=== PATIENT | female | born 1945 | race Caucasian/White ===

== ENCOUNTER 2017-06-18 07:00 | Observation (INO) | payer OTHER, MEDICARE ==
[2017-06-18] MEDS ORDERED: ASPIRIN 81 MG CHEWABLE TABLETS PO ONE (07:20)
[2017-06-18 07:21] VITALS: BMI 27.3
[2017-06-18] MEDS ORDERED: ASPIRIN 81 MG CHEWABLE TABLETS ONE (07:28)
[2017-06-18 07:31] LABS: BASOPHIL 2.5 % (0-2.0); EOSINOPHIL 8.6 % (0-4.5); MCHC 31.4 g/dl (32.0-36.0); MEAN CELL VOLUME 79.5 fl (80-96); MEAN PLT VOLUME 8.6 fl (7.5-11.1); NEUTROPHILS 54.2 % (42.8-82.8); PLATELET COUNT 261 K/MM3 (134-434); RDW 19.2 % (11.6-15.6); WHITE BLOOD COUNT 5.8 K/mm3 (4.0-10.0)
--- NOTE | 2017-06-18 07:50 | PDOC ---
Attending Attestation - Resident Resident Name: JoeyohanaJan - ED Attending Attestation I have performed the following: I have examined & evaluated the patient, The case was reviewed & discussed with the resident, I agree w/resident's findings & plan, Exceptions are as noted - HPI HPI: 06/18/17 07:44 71yo F hx COPD, asthma, HTN, HL p/w substernal CP radiating to R side and back a /w cough and headache since yesterday. Intermittent yesterday but constant since last night. No recent travel or LE edema. - Physicial Exam PE: 06/18/17 07:50 GENERAL: Awake, alert, and fully oriented, in no acute distress HEAD: No signs of trauma EYES: PERRLA, EOMI, sclera anicteric, conjunctiva clear ENT: Auricles normal inspection, hearing grossly normal, nares patent, oropharynx clear without exudates. Moist mucosa NECK: Normal ROM, supple, no lymphadenopathy, JVD, or masses LUNGS: Breath sounds equal, clear to auscultation bilaterally. No wheezes, and no crackles HEART: Regular rate and rhythm, normal S1 and S2, no murmurs, rubs or gallops ABDOMEN: Soft, nontender, normoactive bowel sounds. No guarding, no rebound. No masses EXTREMITIES: Normal range of motion, no edema. No clubbing or cyanosis. No cords, erythema, or tenderness NEUROLOGICAL: Normal speech, cranial nerves intact, negative pronator drift, 5/ 5 strength in all 4 extremities, normal sensation to light touch in all 4 extremities, normal cerebellar exam, normal gait, normal reflexes and tone SKIN: Warm, Dry, normal turgor, no rashes or lesions noted. - Medical Decision Making 06/18/17 07:56 71-year-old female with multiple medical problems presents with chest pain since last night. Vitals are unremarkable. Exam is unremarkable. Differential includes but is not limited to ACS versus PE versus pneumonia versus asthma exacerbation. -labs -cxr -cta -admit 06/18/17 10:36 Labs unremarkable including negative troponin. CTA negative for pulmonary embolism. Given high-risk chest pain patient has been admitted to Dr. Cooper for further management and R/o ACS. Case discussed in detail with admitting physician including history, physical exam and ancillary studies. Admitting physician has assumed care for the patient, will follow all pending diagnostics and will complete the evaluation and treatment. Heart Score/ECG Review - History History: Highly suspicious - Electrocardiogram EKG: Normal - Age Age: >/= 65 - Risk Factors Risk Factors Heart Score: Yes Hx Hypercholesterolemia, Yes Hx Hypertension, Yes Smoking History Based on the list above the patient has:: >/=3 risk factors or Hx atherosclerotic disease - Troponin Troponin: </= normal limit - Score Heart Score - Total: 6 #1 06/18/17 07:57 Twelve-lead EKG was performed and reviewed by me. Normal sinus rhythm, rate 68. Normal axis and intervals. No ST elevations.
--- NOTE | 2017-06-18 07:52 | PDOC ---
History of Present Illness - General Chief Complaint: Chest Pain Stated Complaint: PAIN Time Seen by Provider: 06/18/17 07:10 History Source: Patient Exam Limitations: No Limitations - History of Present Illness Initial Comments: 06/18/17 07:39 Patient is a 71F with history of COPD/Asthma, DM, HTN and HLD here today complaining of substernal chest pain radiating to the right side of the chest and back with associated cough, shortness of breath and headache. She states that the pain started yesterday, but was intermittent. The pain and associated symptoms were constant for about 7 hours before presentation, but she's the pain has lessened upon arrival to the hospital. She describes the pain as being "punched in the the chest." Pain gets worse with inspiration. She denies ever having a blood clot, leg swelling, hemoptysis, and recent travel. She states that she had a procedure done in a doctors office where they cut into her leg about a month ago for a varicose vein, but is unsure of exactly what was done. Patient denies nausea, vomiting, fevers, chills and diaphoresis. ALL: PCN, Demerol, Codeine PCP: Marcus Cooper Past History - Past Medical History Allergies/Adverse Reactions: Allergies Allergy/AdvReac Type Severity Reaction Status Date / Time codeine [Codeine] Allergy Severe Difficulty Verified 06/18/17 07:21 Breathing meperidine HCl [From Demerol] Allergy Severe Difficulty Verified 06/18/17 07:21 Breathing Penicillins Allergy Severe Difficulty Verified 06/18/17 07:21 Breathing apple juice Allergy Mild Hives/Itchi Uncoded 06/18/17 07:21 ng Home Medications: Ambulatory Orders Albuterol Sulfate Inhaler - [Ventolin HFA Inhaler -] 1 - 2 inh PO QID PRN Canagliflozin [Invokana] 100 mg PO DAILY 01/21/15 Furosemide [Lasix -] 20 mg PO TID 01/21/15 Levothyroxine [Synthroid -] 25 mcg PO DAILY 01/21/15 Insulin (Levemir) [Levemir Vial] 24 units SCJ DAILY 05/10/16 Omeprazole 20 mg PO DAILY 05/10/16 Fenofibrate [Lofibra] 160 mg PO DAILY 05/11/16 Lipase/Protease/Amylase [Creon Dr 24,000 Units Capsule] 1 cap PO DAILY 05/11/16 Montelukast Sodium 10 mg PO DAILY 05/11/16 Naproxen [Naprosyn -] 500 mg PO BID 05/11/16 Nitroglycerin [Nitrostat] 0.4 mg SL ASDIR PRN 05/11/16 Sitagliptin Phos/Metformin HCl [Janumet 50-1,000 mg Tablet] 1 cap PO DAILY 05/11 Anemia: No Asthma: Yes Cancer: No Cardiac Disorders: No CVA: No COPD: Yes CHF: No Dementia: No Diabetes: Yes (IDDM) GI Disorders: No Disorders: No HTN: Yes Hypercholesterolemia: Yes Liver Disease: No Seizures: No Thyroid Disease: No - Surgical History Abdominal Surgery: No Appendectomy: No Cardiac Surgery: No Cholecystectomy: No Lung Surgery: No Neurologic Surgery: No Orthopedic Surgery: No - Immunization History Immunization Up to Date: Yes - Suicide/Smoking/Psychosocial Hx Smoking Status: No (quit 2010) Smoking History: Never smoked Have you smoked in the past 12 months: No Number of Cigarettes Smoked Daily: 0 If you are a former smoker, when did you quit?: 2009 Information on smoking cessation initiated: No Hx Alcohol Use: No Drug/Substance Use Hx: No Substance Use Type: None Hx Substance Use Treatment: No Review of Systems - Review of Systems Comments:: 06/18/17 07:53 GENERAL/CONSTITUTIONAL: No fever or chills. No weakness. HEAD, EYES, EARS, NOSE AND THROAT: No change in vision. No sore throat. CARDIOVASCULAR: Positive for chest pain and shortness of breath. RESPIRATORY: Positive for cough. Negative for wheezing, or hemoptysis. GASTROINTESTINAL: No nausea, vomiting, diarrhea or constipation. GENITOURINARY: No dysuria, frequency, or change in urination. MUSCULOSKELETAL: No joint or muscle swelling or pain. No neck or back pain. SKIN: No rash NEUROLOGIC: Positive headache. Negative for vertigo, loss of consciousness, or change in strength/sensation. ENDOCRINE: No increased thirst. No abnormal weight change HEMATOLOGIC/LYMPHATIC: No anemia, easy bleeding, or history of blood clots. ALLERGIC/IMMUNOLOGIC: No hives or skin allergy. *Physical Exam - Vital Signs Last Vital Signs Temp Pulse Resp BP Pulse Ox 98.2 F 66 20 135/93 98 06/18/17 07:22 06/18/17 07:19 06/18/17 07:22 06/18/17 07:19 06/18/17 07:22 - Physical Exam Comments: 06/18/17 07:55 GENERAL: Awake, alert, and fully oriented, in no acute distress HEAD: No signs of trauma, normocephalic, atraumatic EYES: PERRLA, EOMI, sclera anicteric, conjunctiva clear ENT: Auricles normal inspection, hearing grossly normal, nares patent, oropharynx clear without exudates. Moist mucosa NECK: Normal ROM, supple, no lymphadenopathy, JVD, or masses LUNGS: No distress, speaks full sentences, clear to auscultation bilaterally HEART: Regular rate and rhythm, normal S1 and S2, no murmurs, rubs or gallops, peripheral pulses normal and equal bilaterally. ABDOMEN: Soft, nontender, normoactive bowel sounds. No guarding, no rebound. No masses EXTREMITIES: Normal inspection, Normal range of motion, no edema. No clubbing or cyanosis. NEUROLOGICAL: Cranial nerves II through XII grossly intact. Normal speech, no focal sensorimotor deficits SKIN: Warm, Dry, normal turgor, no rashes or lesions noted. Heart Score/ECG Review - History History: Moderately suspicious - Electrocardiogram EKG: Normal - Age Age: >/= 65 - Risk Factors Risk Factors Heart Score: Yes Hx Hypercholesterolemia, Yes Hx Hypertension, Yes Hx Diabetes, Yes Smoking History Based on the list above the patient has:: >/=3 risk factors or Hx atherosclerotic disease - Troponin Troponin: </= normal limit - Score Heart Score - Total: 5 ED Treatment Course - LABORATORY CBC & Chemistry Diagram: 06/18/17 07:18 06/18/17 07:18 - ADDITIONAL ORDERS Additional order review: 06/18/17 07:18 RBC 5.34 H MCV 79.5 L MCHC 31.4 L RDW 19.2 H D MPV 8.6 Neutrophils % 54.2 Lymphocytes % 25.7 D Monocytes % 9.0 Eosinophils % 8.6 H Basophils % 2.5 H D - RADIOLOGY Radiology Studies Ordered: Category Date Time Status CHEST CTA [CT] Stat CT Scan 06/18/17 07:21 Ordered CHEST X-RAY PORTABLE* [RAD] Stat Radiology 06/18/17 07:21 Ordered - Medications Given in the ED: ED Medications Discontinued Medications Generic Name Dose Route Start Last Admin Trade Name Wali PRN Reason Stop Dose Admin Aspirin 162 mg 06/18/17 07:20 06/18/17 07:32 Asa - PO 06/18/17 07:21 162 mg ONCE ONE Administration Medical Decision Making - Medical Decision Making 06/18/17 07:56 71F with history of COPD/Asthma, COPD, smoking history, and NIDDM here today complaining of chest pain. Vital signs stable and normal. Possible recent surgical procedure. Chest pain is pleuritic, but patient is currently in little pain when compared to before. Will evaluate with heart workup and chest cta to eval for PE. HEART score of 5 at baseline. Will likely obs. EKG shows normal sinus rhythm, normal rate, no st elevations, no significant t wave inversions, normal axis, normal intervals. Reassuring EKG. 06/18/17 08:47 CXR shows no acute cardiopulmonary process. No evidence of widened mediastinum or heart failure. Possible cardiomegaly. 06/18/17 08:48 Laboratory Tests 06/18/17 06/18/17 07:18 07:18 WBC 5.8 Hgb 13.3 Hct 42.4 Plt Count 261 D BUN 19 H Creatinine 1.0 Troponin I < 0.02 CBC normal. Kidney function normal. Troponin neg. 06/18/17 10:03 CTA shows no PE, no evidence of dissection, borderline enlarged lymph node in paratracheal area, recommends comparison to prior CT or follow up CT in 6 months. Patient informed of results. 06/18/17 17:[address] Cooper. *DC/Admit/Observation/Transfer Diagnosis at time of Disposition: Chest pain Qualifiers: Chest pain type: precordial pain Qualified Code(s): R07.2 - Precordial pain - Discharge Dispostion Condition at time of disposition: Stable Admit: Yes - Referrals - Patient Instructions - Post Discharge Activity
[2017-06-18 07:53] LABS: ALBUMIN 3.6 g/dl (3.4-5.0); ANION GAP 8 (8-16); BILIRUBIN,TOTAL 0.2 mg/dL (0.2-1.0); CALCIUM 8.2 mg/dL (8.5-10.1); CO2 22 mmol/L (21-32); GLUCOSE,RANDOM 128 mg/dL (74-106); INR 0.95 (0.82-1.09); MAGNESIUM 2.2 mg/dL (1.8-2.4); PROTHROMBIN TIME (PATIENT) 10.7 SEC (9.98-11.88); SGOT/AST 17 U/L (15-37); SGPT/ALT 26 U/L (12-78); TOT PROT 7.3 g/dl (6.4-8.2)
[2017-06-18 07:55] LABS: ALK PHOS 72 U/L (45-117); CPK 95 IU/L (26-192); TROPONIN I < 0.02 ng/ml (0.00-0.05)
--- NOTE | 2017-06-18 13:00 | CON.CARD ---
Consult Consult Specialty:: Cardiology Referred by:: Dr Marcus Cooper Reason for Consultation:: chest pain - History of Present Illness Chief Complaint: chest pain History of Present Illness: She is a 71 year old woman with a history of HTN, chol, COPD, exsmoker, pericardial effusion 2014 by echo, normal stress test about 2 years ago on [facility], who presented with epigastric and retrosternal chest pain, radiating to the right chest, shoulder and back, nonexertional, with sob. No orthopnea, pnd or edema. No palpitations, dizziness or syncope. Baseline exercise tolerance is good. CTA 06/18/17 no PE No effusion. +coronary artery calcifications. - History Source History Provided By: Patient, Medical Record Limitations to Obtaining History: No Limitations - Past Medical History Cardio/Vascular: Yes: HTN, Hyperlipdemia Pulmonary: Yes: Asthma, COPD - Past Surgical History Past Surgical History: Yes: Cholecystectomy (18 years ago) - Alcohol/Substance Use Hx Alcohol Use: No - Smoking History Smoking history: Never smoked Have you smoked in the past 12 months: No Aproximately how many cigarettes per day: 0 If you are a former smoker, when did you quit?: 2009 Home Medications - Allergies Allergies/Adverse Reactions: Allergies Allergy/AdvReac Type Severity Reaction Status Date / Time codeine [Codeine] Allergy Severe Difficulty Verified 06/18/17 07:21 Breathing meperidine HCl [From Demerol] Allergy Severe Difficulty Verified 06/18/17 07:21 Breathing Penicillins Allergy Severe Difficulty Verified 06/18/17 07:21 Breathing apple juice Allergy Mild Hives/Itchi Uncoded 06/18/17 07:21 ng - Home Medications Home Medications: Ambulatory Orders Albuterol Sulfate Inhaler - [Ventolin HFA Inhaler -] 1 - 2 inh PO QID PRN Canagliflozin [Invokana] 100 mg PO DAILY 01/21/15 Furosemide [Lasix -] 20 mg PO TID 01/21/15 Levothyroxine [Synthroid -] 25 mcg PO DAILY 01/21/15 Insulin (Levemir) [Levemir Vial] 24 units SCJ DAILY 05/10/16 Omeprazole 20 mg PO DAILY 05/10/16 Fenofibrate [Lofibra] 160 mg PO DAILY 05/11/16 Lipase/Protease/Amylase [Lizz Lees 24,000 Units Capsule] 1 cap PO DAILY 05/11/16 Montelukast Sodium 10 mg PO DAILY 05/11/16 Naproxen [Naprosyn -] 500 mg PO BID 05/11/16 Nitroglycerin [Nitrostat] 0.4 mg SL ASDIR PRN 05/11/16 Sitagliptin Phos/Metformin HCl [Janumet 50-1,000 mg Tablet] 1 cap PO DAILY 05/11 Family Disease History - Family Disease History Family History: Unable to Obtain Review of Systems - Review of Systems Constitutional: reports: No Symptoms Eyes: reports: No Symptoms HENT: reports: No Symptoms Neck: reports: No Symptoms Gastrointestinal: reports: No Symptoms Genitourinary: reports: No Symptoms Vital Signs: Vital Signs Temperature 97.4 F L 06/18/17 12:14 Pulse Rate 80 06/18/17 12:14 Respiratory Rate 16 06/18/17 12:14 Blood Pressure 145/82 06/18/17 12:14 O2 Sat by Pulse Oximetry (%) 96 06/18/17 12:14 Constitutional: Yes: No Distress, Calm Eyes: Yes: Conjunctiva Clear HENT: Yes: Atraumatic, Normocephalic Neck: Yes: Supple, Trachea Midline Respiratory: Yes: CTA Bilaterally Gastrointestinal: Yes: Normal Bowel Sounds, Soft JVD: No Carotid Bruit: No PMI: Non-Displaced Heart Sounds: Yes: S1, S2 Musculoskeletal: Yes: WNL Extremities: Yes: WNL Edema: No Peripheral Pulses WNL: Yes - Other Data Labs, Other Data: CBC, BMP 06/18/17 07:18 06/18/17 07:18 INR, PTT INR 0.95 (0.82-1.09) 06/18/17 07:18 Troponin, BNP 06/18/17 07:18 Troponin I < 0.02 Troponin, BNP 06/18/17 07:18 Troponin I < 0.02 Imaging - Results Chest X-ray: Report Reviewed (zina) Cat Scan: Report Reviewed (cta no pe, no effusion) EKG: Report Reviewed (normal ECG) Problem List - Problems (1) Chest pain Assessment/Plan: She has pain that is somewhat atypical for angina, but multiple risk factors and CAD seen on the CT scan. No evidence of recurrent effusion. Needs nuclear stress test. No heparin. Continue home medications. aspirin. Code(s): R07.9 - CHEST PAIN, UNSPECIFIED Qualifiers: Chest pain type: precordial pain Qualified Code(s): R07.2 - Precordial pain
[2017-06-18] MEDS ORDERED: ALBUTEROL SO4 18 GM HFA INHALER IH PRN (13:14)
--- NOTE | 2017-06-18 15:03 | EKG ---
Test Reason : Blood Pressure : / mmHG Vent. Rate : 068 BPM Atrial Rate : 068 BPM P-R Int : 180 ms QRS Dur : 074 ms QT Int : 440 ms P-R-T Axes : 070 026 063 degrees QTc Int : 467 ms NORMAL SINUS RHYTHM NONSPECIFIC T WAVE ABNORMALITY WHEN COMPARED WITH ECG OF 21-JAN-2015 17:00, NONSPECIFIC T WAVE ABNORMALITY INPRECORDIAL LEADS. REPEAT EKG IF CLINICALLY INDICATED Confirmed by RENAE MÉNDEZ MD ([id number]) on 06/18/2017 3:02:45 PM Referred By: Confirmed By:RENAE MÉNDEZ MD
[2017-06-18] MEDS: INSULIN DETEMIR 100 UNITS/ML MDV SQ SCH ×3 (15:09→21:48)
[2017-06-18] MEDS: metFORMIN HCL 500 MG TABLET (FP) PO SCH ×2 (15:10→17:48)
[2017-06-18] MEDS: LEVOTHYROXINE NA 25 MCG TABLET (FP) PO SCH (15:10)
[2017-06-18] MEDS: FLUTICASONE/SALMETEROL 100 MCG/50 MCG DISKUS IH SCH (21:43)
[2017-06-19] MEDS: LEVOTHYROXINE NA 25 MCG TABLET (FP) PO SCH (06:12)
[2017-06-19] MEDS: metFORMIN HCL 500 MG TABLET (FP) PO SCH ×2 (06:12→18:19)
[2017-06-19] MEDS: ASPIRIN COATED 81 MG TABLET.EC PO SCH (09:14)
[2017-06-19] MEDS: PANTOPRAZOLE 40 MG TABLET (FP) PO SCH (09:14)
[2017-06-19] MEDS: FLUTICASONE/SALMETEROL 100 MCG/50 MCG DISKUS IH SCH ×2 (09:15→22:30)
[2017-06-19 09:20] LABS: ALBUMIN 3.6 g/dl (3.4-5.0); ALK PHOS 71 U/L (45-117); ANION GAP 10 (8-16); BILIRUBIN,TOTAL 0.3 mg/dL (0.2-1.0); CALCIUM 8.9 mg/dL (8.5-10.1); CO2 24 mmol/L (21-32); GLUCOSE,RANDOM 143 mg/dL (74-106); SGOT/AST 16 U/L (15-37); SGPT/ALT 25 U/L (12-78)
[2017-06-19 09:49] LABS: BASOPHIL 1.2 % (0-2.0); EOSINOPHIL 9.5 % (0-4.5); MCHC 31.3 g/dl (32.0-36.0); MEAN CELL VOLUME 79.9 fl (80-96); MEAN PLT VOLUME 8.9 fl (7.5-11.1); NEUTROPHILS 58.2 % (42.8-82.8); PLATELET COUNT 250 K/MM3 (134-434); RDW 19.5 % (11.6-15.6); WHITE BLOOD COUNT 5.8 K/mm3 (4.0-10.0)
--- NOTE | 2017-06-19 10:53 | HP ---
Admitting History and Physical - Admission Chief Complaint: pt c/o rt arm and back pain rad down rt thigh. started 1200 mid yesterday but today epigastric bloated abd pain. good bm no diaaera. denies all other complaints History Source: Patient Limitations to Obtaining History: No Limitations - Past Medical History Cardiovascular: Yes: HTN, Hyperlipdemia Pulmonary: Yes: Asthma, COPD Gastrointestinal: Yes: Other (lap choly in past) ...: No Musculoskeletal: Yes: Chronic low back pain - Past Surgical History Past Surgical History: Yes: Cholecystectomy (18 years ago) - Smoking History Smoking history: Never smoked Have you smoked in the past 12 months: No Aproximately how many cigarettes per day: 0 If you are a former smoker, when did you quit?: 2009 - Alcohol/Substance Use Hx Alcohol Use: No History of Substance Use: reports: None - Social History Usual Living Arrangement: Yes: Alone History of Recent Travel: No Home Medications - Allergies Allergies/Adverse Reactions: Allergies Allergy/AdvReac Type Severity Reaction Status Date / Time codeine [Codeine] Allergy Severe Difficulty Verified 06/18/17 07:21 Breathing meperidine HCl [From Demerol] Allergy Severe Difficulty Verified 06/18/17 07:21 Breathing Penicillins Allergy Severe Difficulty Verified 06/18/17 07:21 Breathing apple juice Allergy Mild Hives/Itchi Uncoded 06/18/17 07:21 ng - Home Medications Home Medications: Ambulatory Orders Albuterol Sulfate Inhaler - [Ventolin HFA Inhaler -] 1 - 2 inh PO QID PRN Canagliflozin [Invokana] 100 mg PO DAILY 01/21/15 Furosemide [Lasix -] 20 mg PO TID 01/21/15 Levothyroxine [Synthroid -] 25 mcg PO DAILY 01/21/15 Insulin (Levemir) [Levemir Vial] 24 units SCJ DAILY 05/10/16 Omeprazole 20 mg PO DAILY 05/10/16 Fenofibrate [Lofibra] 160 mg PO DAILY 05/11/16 Lipase/Protease/Amylase [Lanceon Dr 24,000 Units Capsule] 1 cap PO DAILY 05/11/16 Montelukast Sodium 10 mg PO DAILY 05/11/16 Naproxen [Naprosyn -] 500 mg PO BID 05/11/16 Nitroglycerin [Nitrostat] 0.4 mg SL ASDIR PRN 05/11/16 Sitagliptin Phos/Metformin HCl [Janumet 50-1,000 mg Tablet] 1 cap PO DAILY 05/11 Family Disease History - Family Disease History Family History: Unremarkable Review of Systems - Review of Systems Constitutional: reports: Other (abd pain to palp) Eyes: reports: No Symptoms HENT: reports: No Symptoms Neck: reports: No Symptoms Cardiovascular: reports: No Symptoms Respiratory: reports: SOB on Exertion Gastrointestinal: reports: Abdominal Pain Genitourinary: reports: No Symptoms Breasts: reports: No Symptoms Reported Musculoskeletal: reports: Back Pain Integumentary: reports: No Symptoms Neurological: reports: No Symptoms Endocrine: reports: No Symptoms Hematology/Lymphatic: reports: No Symptoms Psychiatric: reports: No Symptoms Physical Examination Vital Signs: Vital Signs Temperature 98 F 06/19/17 10:00 Pulse Rate 90 06/19/17 10:00 Respiratory Rate 18 06/19/17 10:00 Blood Pressure 134/86 06/19/17 10:00 O2 Sat by Pulse Oximetry (%) 94 L 06/18/17 21:14 Constitutional: Yes: No Distress Eyes: Yes: WNL HENT: Yes: WNL Neck: Yes: WNL Cardiovascular: Yes: WNL Respiratory: Yes: WNL Gastrointestinal: Yes: Tenderness ...Rectal Exam: Yes: Deferred Renal/: Yes: WNL Breast(s): Yes: WNL Musculoskeletal: Yes: Back Pain Extremities: Yes: WNL Edema: No Peripheral Pulses WNL: Yes Integumentary: Yes: WNL Labs: CBC, BMP 06/19/17 06:15 06/19/17 06:15 Assessment/Plan ppi gi f/u sono abd ? ct stess test pnd p/t eval in aM
[2017-06-19 11:16] LABS: AMYLASE 26 U/L (25-115)
--- NOTE | 2017-06-19 13:13 | PN ---
Progress Note, Physician Chief Complaint: no further episodes tele neg History of Present Illness: She is a 71 year old woman with a history of HTN, chol, COPD, exsmoker, pericardial effusion 2014 by echo, normal stress test about 2 years ago on [facility], who presented with epigastric and retrosternal chest pain, radiating to the right chest, shoulder and back, nonexertional, with sob. No orthopnea, pnd or edema. No palpitations, dizziness or syncope. Baseline exercise tolerance is good. CTA 06/18/17 no PE No effusion. +coronary artery calcifications. - Current Medication List Current Medications: Active Medications Albuterol Sulfate (Ventolin Hfa Inhaler -) 2 puff IH Q4H PRN PRN Reason: SHORT OF BREATH/WHEEZING Aspirin (Ecotrin -) 81 mg PO DAILY [facility] Last Admin: 06/19/17 09:14 Dose: 81 mg Insulin Detemir (Levemir Vial) 20 units SQ HS [facility] Last Admin: 06/18/17 21:48 Dose: Not Given Levothyroxine Sodium (Synthroid -) 25 mcg PO DAILY@0700 [facility] Last Admin: 06/19/17 06:12 Dose: 25 mcg Metformin HCl (Glucophage -) 1,000 mg PO BID@0700,1630 [facility] Last Admin: 06/19/17 06:12 Dose: 1,000 mg Pantoprazole Sodium (Protonix -) 40 mg PO DAILY [facility] Last Admin: 06/19/17 09:14 Dose: 40 mg Fluticasone/Salmeterol (Advair 100mcg/50mcg -) 1 puff IH BID [facility] Last Admin: 06/19/17 09:15 Dose: 1 puff - Objective Vital Signs: Vital Signs Temperature 98 F 06/19/17 10:00 Pulse Rate 90 06/19/17 10:00 Respiratory Rate 18 06/19/17 10:00 Blood Pressure 134/86 06/19/17 10:00 O2 Sat by Pulse Oximetry (%) 94 L 06/18/17 21:14 Constitutional: Yes: Well Nourished, No Distress Eyes: Yes: Conjunctiva Clear, EOM Intact HENT: Yes: Atraumatic, Normocephalic Neck: Yes: Trachea Midline Cardiovascular: Yes: Regular Rate and Rhythm Respiratory: Yes: CTA Bilaterally Gastrointestinal: Yes: Normal Bowel Sounds, Soft, Abdomen, Obese Musculoskeletal: Yes: WNL Extremities: Yes: WNL Edema: No Peripheral Pulses WNL: Yes Labs: CBC, BMP 06/19/17 06:15 06/19/17 06:15 INR, PTT INR 0.95 (0.82-1.09) 06/18/17 07:18 Problem List - Problems (1) Chest pain Assessment/Plan: She has pain that is somewhat atypical for angina, but multiple risk factors and CAD seen on the CT scan. No evidence of recurrent effusion. Needs nuclear stress test. No heparin. Continue home medications. aspirin. Code(s): R07.9 - CHEST PAIN, UNSPECIFIED Qualifiers: Chest pain type: precordial pain Qualified Code(s): R07.2 - Precordial pain
--- NOTE | 2017-06-19 14:35 | CON.GI ---
Consult Consult Specialty:: GI Referred by:: Dr Kristy Cooper Reason for Consultation:: abdominal pain - History of Present Illness Chief Complaint: Abdominal pain History of Present Illness: 71 F with h/o HTN, HLD, asthma/COPD, PSH remote loap emilia admitted with retrosternal chest pain radiating to the R chest,shoulder and back. Now c/o epigastric pain which is located at the xyphoid. CTA with no PE. Only finding was a 1.3 cm paratracheal node. No neoplasm noted. No PE noted. - History Source History Provided By: Patient, Medical Record Limitations to Obtaining History: No Limitations - Past Medical History Cardio/Vascular: Yes: HTN, Hyperlipdemia Pulmonary: Yes: Asthma, COPD Gastrointestinal: Yes: Other (lap choly in past) ...: No Musculoskeletal: Yes: Chronic low back pain - Past Surgical History Past Surgical History: Yes: Cholecystectomy (18 years ago) - Alcohol/Substance Use Hx Alcohol Use: No History of Substance Use: reports: None - Smoking History Smoking history: Never smoked Have you smoked in the past 12 months: No Aproximately how many cigarettes per day: 0 If you are a former smoker, when did you quit?: 2009 - Social History History of Recent Travel: No Home Medications - Allergies Allergies/Adverse Reactions: Allergies Allergy/AdvReac Type Severity Reaction Status Date / Time codeine [Codeine] Allergy Severe Difficulty Verified 06/18/17 07:21 Breathing meperidine HCl [From Demerol] Allergy Severe Difficulty Verified 06/18/17 07:21 Breathing Penicillins Allergy Severe Difficulty Verified 06/18/17 07:21 Breathing apple juice Allergy Mild Hives/Itchi Uncoded 06/18/17 07:21 ng - Home Medications Home Medications: Ambulatory Orders Albuterol Sulfate Inhaler - [Ventolin HFA Inhaler -] 1 - 2 inh PO QID PRN Canagliflozin [Invokana] 100 mg PO DAILY 01/21/15 Furosemide [Lasix -] 20 mg PO TID 01/21/15 Levothyroxine [Synthroid -] 25 mcg PO DAILY 01/21/15 Insulin (Levemir) [Levemir Vial] 24 units SCJ DAILY 05/10/16 Omeprazole 20 mg PO DAILY 05/10/16 Fenofibrate [Lofibra] 160 mg PO DAILY 05/11/16 Lipase/Protease/Amylase [Creon Dr 24,000 Units Capsule] 1 cap PO DAILY 05/11/16 Montelukast Sodium 10 mg PO DAILY 05/11/16 Naproxen [Naprosyn -] 500 mg PO BID 05/11/16 Nitroglycerin [Nitrostat] 0.4 mg SL ASDIR PRN 05/11/16 Sitagliptin Phos/Metformin HCl [Janumet 50-1,000 mg Tablet] 1 cap PO DAILY 05/11 Physical Exam-GI Vital Signs: Vital Signs Temperature 97.9 F 06/19/17 14:11 Pulse Rate 93 H 06/19/17 14:11 Respiratory Rate 18 06/19/17 14:11 Blood Pressure 115/66 06/19/17 14:11 O2 Sat by Pulse Oximetry (%) 95 06/19/17 13:00 Constitutional: Yes: Well Nourished, No Distress Respiratory: Yes: CTA Bilaterally Gastrointestinal Inspection: Yes: WNL ...Auscultate: Yes: Normoactive Bowel Sounds ...Palpate: Yes: Tenderness (at the level of the xyphoid) Neurological: Yes: Alert, Oriented Labs: CBC, BMP 06/19/17 06:15 06/19/17 06:15 INR, PTT INR 0.95 (0.82-1.09) 06/18/17 07:18 Assessment/Plan 71 F with above history now with epigastric pain Labs normal with normal lipase CT with no indication of GI pathology Possible NSAID gastropathy Continue PPI f/u as opt
[2017-06-19] MEDS: INSULIN DETEMIR 100 UNITS/ML MDV SQ SCH (22:29)
[2017-06-20] MEDS: LEVOTHYROXINE NA 25 MCG TABLET (FP) PO SCH (06:20)
[2017-06-20] MEDS: metFORMIN HCL 500 MG TABLET (FP) PO SCH ×2 (06:20→17:04)
[2017-06-20 07:35] LABS: BASOPHIL 1.4 % (0-2.0); MCH 25.4 pg (25.7-33.7); MCHC 31.9 g/dl (32.0-36.0); MEAN CELL VOLUME 79.5 fl (80-96); MEAN PLT VOLUME 8.7 fl (7.5-11.1); NEUTROPHILS 56.9 % (42.8-82.8); PLATELET COUNT 286 K/MM3 (134-434); RDW 19.5 % (11.6-15.6); WHITE BLOOD COUNT 6.7 K/mm3 (4.0-10.0)
[2017-06-20 08:12] LABS: ANION GAP 11 (8-16); CALCIUM 9.5 mg/dL (8.5-10.1); CO2 24 mmol/L (21-32); CREATININE 1.1 mg/dL (0.55-1.02); GLUCOSE,RANDOM 132 mg/dL (74-106)
[2017-06-20] MEDS: FLUTICASONE/SALMETEROL 100 MCG/50 MCG DISKUS IH SCH ×2 (09:35→21:42)
[2017-06-20] MEDS: ASPIRIN COATED 81 MG TABLET.EC PO SCH ×2 (09:35→14:06)
[2017-06-20] MEDS: PANTOPRAZOLE 40 MG TABLET (FP) PO SCH ×2 (09:35→14:06)
[2017-06-20] MEDS ORDERED: REGADENOSON 0.4 MG/5 ML PRE-FILLED SYRINGE IVPUSH ONE ×2 (10:00→10:19)
--- NOTE | 2017-06-20 10:49 | PN ---
Progress Note, Physician History of Present Illness: PT NO CP VSS CHK STREES TEST TODAY AND SONO ABD TODAY ? DISH IF NL - Current Medication List Current Medications: Active Medications Albuterol Sulfate (Ventolin Hfa Inhaler -) 2 puff IH Q4H PRN PRN Reason: SHORT OF BREATH/WHEEZING Aspirin (Ecotrin -) 81 mg PO DAILY [facility] Last Admin: 06/20/17 09:35 Dose: Not Given Insulin Detemir (Levemir Vial) 20 units SQ HS [facility] Last Admin: 06/19/17 22:29 Dose: Not Given Levothyroxine Sodium (Synthroid -) 25 mcg PO DAILY@0700 [facility] Last Admin: 06/20/17 06:20 Dose: Not Given Metformin HCl (Glucophage -) 1,000 mg PO BID@0700,1630 [facility] Last Admin: 06/20/17 06:20 Dose: Not Given Pantoprazole Sodium (Protonix -) 40 mg PO DAILY [facility] Last Admin: 06/20/17 09:35 Dose: Not Given Fluticasone/Salmeterol (Advair 100mcg/50mcg -) 1 puff IH BID [facility] Last Admin: 06/20/17 09:35 Dose: Not Given - Objective Vital Signs: Vital Signs Temperature 97.8 F 06/20/17 08:58 Pulse Rate 80 06/20/17 08:58 Respiratory Rate 14 06/20/17 08:58 Blood Pressure 118/70 06/20/17 08:58 O2 Sat by Pulse Oximetry (%) 95 06/20/17 05:00 Labs: CBC, BMP 06/20/17 05:27 06/20/17 05:27 INR, PTT INR 0.95 (0.82-1.09) 06/18/17 07:18
[2017-06-20] MEDS: LIPASE/PROTEASE/AMYLASE 36,000 UNIT CAPSULE PO SCH ×2 (14:05→17:04)
--- NOTE | 2017-06-20 16:33 | PN ---
Progress Note, Physician Chief Complaint: Epigastric pain Presently comfortable History of Present Illness: This is a 71 year old woman with a history of HTN, HLD, COPD, exsmoker, pericardial effusion 2014 by echo, normal stress test about 2 years ago, who presented with epigastric and retrosternal chest pain, radiating to the right chest, shoulder and back, nonexertional, with sob. No orthopnea, pnd or edema. No palpitations, dizziness or syncope. Baseline exercise tolerance is good. CTA 06/18/17 no PE No effusion. +coronary artery calcifications. - Current Medication List Current Medications: Active Medications Albuterol Sulfate (Ventolin Hfa Inhaler -) 2 puff IH Q4H PRN PRN Reason: SHORT OF BREATH/WHEEZING Aspirin (Ecotrin -) 81 mg PO DAILY [facility] Last Admin: 06/20/17 14:06 Dose: 81 mg Insulin Detemir (Levemir Vial) 20 units SQ HS [facility] Last Admin: 06/19/17 22:29 Dose: Not Given Levothyroxine Sodium (Synthroid -) 25 mcg PO DAILY@0700 [facility] Last Admin: 06/20/17 06:20 Dose: Not Given Metformin HCl (Glucophage -) 1,000 mg PO BID@0700,1630 [facility] Last Admin: 06/20/17 06:20 Dose: Not Given Pancrelipase (Creon Dr 36,000 Units Capsule) 1 cap PO TIDCM [facility] Last Admin: 06/20/17 14:05 Dose: Not Given Pantoprazole Sodium (Protonix -) 40 mg PO DAILY [facility] Last Admin: 06/20/17 14:06 Dose: 40 mg Fluticasone/Salmeterol (Advair 100mcg/50mcg -) 1 puff IH BID [facility] Last Admin: 06/20/17 09:35 Dose: Not Given - Objective Vital Signs: Vital Signs Temperature 98 F 06/20/17 13:00 Pulse Rate 80 06/20/17 13:00 Respiratory Rate 18 06/20/17 13:00 Blood Pressure 118/70 06/20/17 13:00 O2 Sat by Pulse Oximetry (%) 98 06/20/17 13:00 Constitutional: Yes: No Distress HENT: Yes: WNL Neck: Yes: WNL Cardiovascular: Yes: Regular Rate and Rhythm (NL S1S2, no MRHG) Respiratory: Yes: CTA Bilaterally Gastrointestinal: Yes: Soft Edema: No Neurological: Yes: Alert, Oriented (Grossly nonfocal) Labs: CBC, BMP 06/20/17 05:27 06/20/17 05:27 INR, PTT INR 0.95 (0.82-1.09) 06/18/17 07:18 Assessment/Plan Chest Pain: Somewhat atypical for angina, but multiple risk factors and CAD seen on the CT scan. No evidence of recurrent effusion. Nuclear Stress Testing in progress No heparin. Continue current medications.
[2017-06-20] MEDS ORDERED: INSULIN DETEMIR 100 UNITS/ML MDV SQ ONE (21:40)
[2017-06-20] MEDS: INSULIN DETEMIR 100 UNITS/ML MDV SQ SCH (21:42)
[2017-06-21] MEDS: LEVOTHYROXINE NA 25 MCG TABLET (FP) PO SCH (06:30)
[2017-06-21] MEDS: metFORMIN HCL 500 MG TABLET (FP) PO SCH (06:30)
--- NOTE | 2017-06-21 08:07 | DS ---
Physical Examination Vital Signs: Vital Signs Temperature 97.4 F L 06/21/17 06:00 Pulse Rate 67 06/21/17 06:00 Respiratory Rate 20 06/21/17 06:00 Blood Pressure 143/74 06/21/17 06:00 O2 Sat by Pulse Oximetry (%) 94 L 06/21/17 05:00 Constitutional: Yes: Well Nourished Eyes: Yes: WNL, Other HENT: Yes: WNL Neck: Yes: WNL Cardiovascular: Yes: Regular Rate and Rhythm Respiratory: Yes: WNL Gastrointestinal: Yes: Normal Bowel Sounds, Soft ...Rectal Exam: Yes: Deferred Renal/: Yes: WNL Breast(s): Yes: WNL Musculoskeletal: Yes: Back Pain Extremities: Yes: WNL Edema: No Peripheral Pulses WNL: Yes Integumentary: Yes: WNL Neurological: Yes: WNL ...Motor Strength: WNL Labs: CBC, BMP 06/20/17 05:27 06/20/17 05:27 Discharge Summary Reason For Visit: PAIN Current Active Problems Chest pain (Acute) Condition: Stable - Instructions Diet, Activity, Other Instructions: appt w me tuesday 1200noon cont all meds at home as is no changes Referrals: Marcus Cooper MD [Primary Care Provider] - Disposition: HOME - Home Medications Comprehensive Discharge Medication List: Ambulatory Orders Albuterol Sulfate Inhaler - [Ventolin HFA Inhaler -] 1 - 2 inh PO QID PRN Canagliflozin [Invokana] 100 mg PO DAILY 01/21/15 Furosemide [Lasix -] 20 mg PO TID 01/21/15 Levothyroxine [Synthroid -] 25 mcg PO DAILY 01/21/15 Insulin (Levemir) [Levemir Vial] 24 units SCJ DAILY 05/10/16 Omeprazole 20 mg PO DAILY 05/10/16 Fenofibrate [Lofibra] 160 mg PO DAILY 05/11/16 Lipase/Protease/Amylase [Lizz Dr 24,000 Units Capsule] 1 cap PO DAILY 05/11/16 Montelukast Sodium 10 mg PO DAILY 05/11/16 Naproxen [Naprosyn -] 500 mg PO BID 05/11/16 Nitroglycerin [Nitrostat] 0.4 mg SL ASDIR PRN 05/11/16 Sitagliptin Phos/Metformin HCl [Janumet 50-1,000 mg Tablet] 1 cap PO DAILY 05/11
[2017-06-21] MEDS: LIPASE/PROTEASE/AMYLASE 36,000 UNIT CAPSULE PO SCH (08:30)
[2017-06-21 08:35] VITALS: BP 138/75; PULSE 88; TEMP 98.4
[2017-06-21] MEDS ORDERED: PT OWN MED DRAWER 7, Y5N ONE (09:20)
[2017-06-21] MEDS: ASPIRIN COATED 81 MG TABLET.EC PO SCH (09:22)
[2017-06-21] MEDS: PANTOPRAZOLE 40 MG TABLET (FP) PO SCH (09:22)
[2017-06-21] MEDS: FLUTICASONE/SALMETEROL 100 MCG/50 MCG DISKUS IH SCH (09:23)
== END 2017-06-21 10:38 | disposition home or self-care (01) ==
LOC: JER 07:00 → JERBED 10:58 → INTOOBSV 10:58 → J4W 14:17
PROVIDERS: ADMIT Family Medicine; ATTEND Family Medicine
PROC: 3E033GC Introduction of Other Therapeutic Substance into Peripheral Vein, Percutaneous Approach (ICD-10-PCS; principal; 2017-06-18)
PROC: 3E013VG Introduction of Insulin into Subcutaneous Tissue, Percutaneous Approach (ICD-10-PCS; 2017-06-18)
PROC: 3E0F7GC Introduction of Other Therapeutic Substance into Respiratory Tract, Via Natural or Artificial Opening (ICD-10-PCS; 2017-06-18)
DX: R07.2 Precordial pain (principal); I10 Essential (primary) hypertension; E78.5 Hyperlipidemia, unspecified; E11.9 Type 2 diabetes mellitus without complications; J45.909 Unspecified asthma, uncomplicated; J44.9 Chronic obstructive pulmonary disease, unspecified; Z79.4 Long term (current) use of insulin; Z79.84 Long term (current) use of oral hypoglycemic drugs; Z88.5 Allergy status to narcotic agent; Z88.0 Allergy status to penicillin; Z91.018 Allergy to other foods
CPT/HCPCS: 36415; 71010-TC; 71275-TC; 78452-TC; 80048; 80053; 82150; 82550; 83036; 83690; 83735; 84484; 85025; 85610; 93005; 93010; 93017; 94640; 96372; 96374; 99285-25; A9502; G0378; J2785

== ENCOUNTER 2017-09-06 11:04 | Emergency (ER) | payer OTHER, MEDICARE ==
[2017-09-06 11:18] VITALS: TEMP 97.4; BMI 25.8
--- NOTE | 2017-09-06 12:00 | PDOC ---
History of Present Illness - General Chief Complaint: Abscess Boil Stated Complaint: CYST ON UPPER BACK Time Seen by Provider: 09/06/17 11:59 - History of Present Illness Initial Comments: 09/06/17 12:01 72 yo F with h/o HTN, NIDDM, HLD, asthma, COPD who presents with upper back abscess. Patient reports one month of progressively burning painful and expanding back abscess. Son at bedside noticed it 2 weeks ago and reports that it has doubled in size. Denies drainage/discharge. Denies f/u with PMD or previous treatment of abscess. Denies h/o abscess. Denies N/V, F/C, CP, SOB, lightheadedness, dsyuria, urinary complaints, LOC, weakness, fatigue, sensory disturbance. Denies current antibiotic use. Reports Penicillin allergy in past with airway closure. Compliant with antihyperglycemic medication. Past History - Past Medical History Allergies/Adverse Reactions: Allergies Allergy/AdvReac Type Severity Reaction Status Date / Time codeine [Codeine] Allergy Severe Difficulty Verified 09/06/17 11:14 Breathing meperidine HCl [From Demerol] Allergy Severe Difficulty Verified 09/06/17 11:14 Breathing Penicillins Allergy Severe Difficulty Verified 09/06/17 11:14 Breathing apple juice Allergy Mild Hives/Itchi Uncoded 09/06/17 11:14 ng Home Medications: Ambulatory Orders Aspirin 81 mg PO DAILY 09/06/17 Canagliflozin [Invokana] 100 mg PO DAILY 09/06/17 Fenofibrate 160 mg PO DAILY 09/06/17 Ferrous Sulfate 325 mg PO TID 09/06/17 Insulin Glargine,Hum.rec.anlog [Lantus] 100 unit SQ HS 09/06/17 Lipase/Protease/Amylase [Creon Dr 24,000 Units Capsule] 1 each PO BID 09/06/17 Metoprolol Succinate [Toprol Xl] 25 mg PO DAILY 09/06/17 Montelukast Sodium [Singulair] 10 mg PO DAILY 09/06/17 Omeprazole 20 mg PO DAILY 09/06/17 Rosuvastatin Calcium [Crestor] 40 mg PO DAILY 09/06/17 Sitagliptin Phos/Metformin HCl [Janumet Xr 50-1,000 mg Tablet] 1 each PO DAILY 09/06/17 Sulfamethoxazole/Trimethoprim [Bactrim Ds -] 1 tab PO BID #14 tablet MDD 2 Tab 09/06/17 Anemia: No Asthma: Yes Cancer: No Cardiac Disorders: No CVA: No COPD: Yes CHF: No Dementia: No Diabetes: Yes (IDDM) GI Disorders: No Disorders: No HTN: Yes Hypercholesterolemia: Yes Liver Disease: No Seizures: No Thyroid Disease: No - Surgical History Abdominal Surgery: No Appendectomy: No Cardiac Surgery: No Cholecystectomy: No Lung Surgery: No Neurologic Surgery: No Orthopedic Surgery: No - Immunization History Immunization Up to Date: Yes - Suicide/Smoking/Psychosocial Hx Smoking Status: No (quit 2010) Smoking History: Never smoked Have you smoked in the past 12 months: No Number of Cigarettes Smoked Daily: 0 If you are a former smoker, when did you quit?: 2009 Information on smoking cessation initiated: No Hx Alcohol Use: No Drug/Substance Use Hx: No Substance Use Type: None Hx Substance Use Treatment: No Review of Systems - Review of Systems Comments:: 09/06/17 11:59 GENERAL/CONSTITUTIONAL: No fever or chills. No weakness. HEAD, EYES, EARS, NOSE AND THROAT: No change in vision. No ear pain or discharge. No sore throat.- CARDIOVASCULAR: No chest pain or shortness of breath RESPIRATORY: No cough, wheezing, or hemoptysis. GASTROINTESTINAL: No nausea, vomiting, diarrhea or constipation. GENITOURINARY: No dysuria, frequency, or change in urination. MUSCULOSKELETAL: No joint or muscle swelling or pain. No neck or back pain. SKIN: + Back Abscess. NEUROLOGIC: No headache, vertigo, loss of consciousness, or change in strength/ sensation. ENDOCRINE: No increased thirst. No abnormal weight change HEMATOLOGIC/LYMPHATIC: No anemia, easy bleeding, or history of blood clots. ALLERGIC/IMMUNOLOGIC: No hives or skin allergy. *Physical Exam - Vital Signs Last Vital Signs Temp Pulse Resp BP Pulse Ox 97.4 F L 64 16 129/62 95 09/06/17 11:14 09/06/17 11:14 09/06/17 11:14 09/06/17 11:14 09/06/17 11:14 - Physical Exam Comments: 09/06/17 11:59 GENERAL: Awake, alert, and fully oriented, in no acute distress HEAD: No signs of trauma, normocephalic, atraumatic EYES: PERRLA, EOMI, sclera anicteric, conjunctiva clear ENT: Auricles normal inspection, hearing grossly normal, nares patent, oropharynx clear without exudates. Moist mucosa NECK: Normal ROM, supple, no lymphadenopathy, JVD, or masses LUNGS: No distress, speaks full sentences, clear to auscultation bilaterally HEART: Regular rate and rhythm, normal S1 and S2, no murmurs, rubs or gallops, peripheral pulses normal and equal bilaterally. EXTREMITIES : Normal inspection, Normal range of motion, no edema. No clubbing or cyanosis. SKIN: Warm, Dry, normal turgor, no rashes noted. Back: 4 x 3 cm lower cervicothoracic abscess with central punctum. Non dressed and not actively weeping, or draining. Slightly erythematous, firm, indurated, and ttp. + Streaking. Non fluctuant. Procedures - Incision and Drainage I&D Site: Left: Other (Left paraspinal back L side) Betadine cleansed: Yes Anesthesia: 1% Lidocaine w/ Epi Volume(ml): 10 Attempts: 1 Iodinated Packin/2 in Plain Packing: No Complications: none Dressing: Yes Medical Decision Making - Medical Decision Making 09/06/17 12:23 72 yo F with h/o HTN, NIDDM, HLD, asthma, COPD who presents with one month of progressively burning painful and expanding back abscess. Denies drainage/ discharge. Denies current reatment of abscess or h/o abscess. Denies N/V, F/C, CP, SOB, lightheadedness, dsyuria, urinary complaints, LOC, weakness, fatigue, sensory disturbance. Denies current antibiotic use. Reports Penicillin allergy in past with airway closure. Last meal ( cereal) 0500 AM ( 09/06/17). Physical exam noteable for 4 x 3 cm lower paraspinal cervicothoracic abscess with central punctum. Non dressed and not actively weeping, or draining. Slightly erythematous, firm, indurated, and ttp. + Streaking. Non fluctuant. Hemodynamically stable. Abscess appears to be superificial with low subcutanoeus involvement. No evidence of cellulitis on physical exam. Will attempt I&D in ED. ED Course: Abscess visualized on bedside U/S. Abscess is superficial 1.7 cm deep. non loculated. 09/06/17 12:57 09/06/17 13:48 Patient I & D performed at bedside. 50-100 ml pus/fluid drained from abscess. Wound culture performed. Patient symptoms improved. She is advised to f/u with PMD within one week, and prescribed Bactrim DS PO BID 14. *DC/Admit/Observation/Transfer Diagnosis at time of Disposition: Back abscess - Discharge Dispostion Disposition: HOME Condition at time of disposition: Stable Admit: No - Prescriptions Prescriptions: Sulfamethoxazole/Trimethoprim [Bactrim Ds -] 1 tab PO BID #14 tablet MDD 2 Tab - Referrals Referrals: Marcus Cooper MD [Primary Care Provider] - - Patient Instructions Printed Discharge Instructions: DI for Skin Abscess Additional Instructions: Please return to the emergency department with any new or worsening symtpoms or concerns. Please follow up for packing removal within 7 days. Please follow up with primary care physician within 1-3 days. Please take Bactrim tablet two times a day for 7 days. - Post Discharge Activity - Attestations Physician Attestion: 09/06/17 13:25 I attest to the documentation provided in this note.
--- NOTE | 2017-09-06 13:33 | PDOC ---
Attending Attestation - Resident Resident Name: Romulo Bucio - ED Attending Attestation I have performed the following: I have examined & evaluated the patient, The case was reviewed & discussed with the resident, I agree w/resident's findings & plan, Exceptions are as noted - HPI HPI: 72y M hx of htn, NIDDM< hl, copd presents with back abscess. Pt notes that it started off as a small bump approx 1 month ago that has gradually worsened and gotten larger and now is painful. Pt dneis any feer/chills, trauma or injury, prior history of abcesses. denies any n/v. large indurated mass over midback. large fluid collection viewed on bedside ultraasound large abcess noted in her upper back that was drained by resident Fortunato. will start pt on course of abx due to her dm return precautions were discussed - Physicial Exam PE: 09/08/17 08:26 see above - Medical Decision Making 09/08/17 08:26 see above
[2017-09-06 13:50] VITALS: BP 126/74; PULSE 60
== END 2017-09-06 13:49 | disposition home or self-care (01) ==
LOC: JERFT 11:04 → JER 11:04
PROC: 0J970ZZ Drainage of Back Subcutaneous Tissue and Fascia, Open Approach (ICD-10-PCS; principal; 2017-09-06)
DX: L02.212 Cutaneous abscess of back [any part, except buttock and flank] (principal); I10 Essential (primary) hypertension; E11.9 Type 2 diabetes mellitus without complications; Z79.84 Long term (current) use of oral hypoglycemic drugs; J44.9 Chronic obstructive pulmonary disease, unspecified; J45.909 Unspecified asthma, uncomplicated; E78.00 Pure hypercholesterolemia, unspecified; Z79.4 Long term (current) use of insulin; Z87.891 Personal history of nicotine dependence
CPT/HCPCS: 10160; 87070; 87076; 87205; 99282-25

== ENCOUNTER 2017-09-13 12:10 | Emergency (ER) | payer OTHER, MEDICARE ==
[2017-09-13 12:45] VITALS: BP 131/65; PULSE 89; TEMP 97.3; BMI 25.8
[2017-09-13] MEDS ORDERED: diphenhydrAMINE HCL 50 MG CAPSULE PO ONE (13:25)
[2017-09-13] MEDS ORDERED: diphenhydrAMINE HCL 25 MG CAPSULE (FP) PO ONE (13:37)
--- NOTE | 2017-09-13 13:50 | PDOC ---
History of Present Illness - General Chief Complaint: Abscess Boil Stated Complaint: FOLLOW-UP/ CYST ON BACK Time Seen by Provider: 09/13/17 13:03 - History of Present Illness Initial Comments: Pt is a 72 yo F with a PMHx of NIDDM, who was discharged with 1 week of Bactrim DS after a recent I&D of a back abscess who presented with an allergic reaction. She states that after starting the Bactrim DS, she noted pruritis, hives, and lip/facial/throat swelling. She continued to take the antibiotics and facial/throat symptoms have resolved, but she still endorses intense pruritis. She denies difficulty breathing, denies CP. She has not taken anti- histamines or creams for the reaction. She last took the Bactrim this morning. With regards to the abscess, she still notes purulent, foul smelling drainage from the area. She was supposed to followup with Dr Cooper to get packing removed, but could not get an appointment so the removed the packing himself. The size of the abscess has reduced. She denies pain, swelling around the area. Denies fevers, chills, CP, SOB. ALso endorses some dysuria and foul smelling urine for the past 2-3 days. Past History - Past Medical History Allergies/Adverse Reactions: Allergies Allergy/AdvReac Type Severity Reaction Status Date / Time codeine [Codeine] Allergy Severe Difficulty Verified 09/13/17 12:40 Breathing meperidine HCl [From Demerol] Allergy Severe Difficulty Verified 09/13/17 12:40 Breathing Penicillins Allergy Severe Difficulty Verified 09/13/17 12:40 Breathing Sulfa (Sulfonamide Allergy Mild Hives Verified 09/13/17 14:47 Antibiotics) apple juice Allergy Mild Hives/Itchi Uncoded 09/13/17 12:40 ng Home Medications: Ambulatory Orders Aspirin 81 mg PO DAILY 09/06/17 Canagliflozin [Invokana] 100 mg PO DAILY 09/06/17 Fenofibrate 160 mg PO DAILY 09/06/17 Ferrous Sulfate 325 mg PO TID 09/06/17 Insulin Glargine,Hum.rec.anlog [Lantus] 100 unit SQ HS 09/06/17 Lipase/Protease/Amylase [Lizz Lees 24,000 Units Capsule] 1 each PO BID 09/06/17 Metoprolol Succinate [Toprol Xl] 25 mg PO DAILY 09/06/17 Montelukast Sodium [Singulair] 10 mg PO DAILY 09/06/17 Omeprazole 20 mg PO DAILY 09/06/17 Rosuvastatin Calcium [Crestor] 40 mg PO DAILY 09/06/17 Sitagliptin Phos/Metformin HCl [Janumet Xr 50-1,000 mg Tablet] 1 each PO DAILY 09/06/17 Clindamycin [Cleocin -] 300 mg PO Q6HPO #28 capsule 09/13/17 Anemia: No Asthma: Yes Cancer: No Cardiac Disorders: No CVA: No COPD: Yes CHF: No Dementia: No Diabetes: Yes (IDDM) GI Disorders: No Disorders: No HTN: Yes Hypercholesterolemia: Yes Liver Disease: No Seizures: No Thyroid Disease: No - Surgical History Abdominal Surgery: No Appendectomy: No Cardiac Surgery: No Cholecystectomy: Yes Lung Surgery: No Neurologic Surgery: No Orthopedic Surgery: No - Immunization History Immunization Up to Date: Yes - Suicide/Smoking/Psychosocial Hx Smoking Status: No (quit 2010) Smoking History: Never smoked Have you smoked in the past 12 months: No Number of Cigarettes Smoked Daily: 0 If you are a former smoker, when did you quit?: 2009 Information on smoking cessation initiated: No Hx Alcohol Use: No Drug/Substance Use Hx: No Substance Use Type: None Hx Substance Use Treatment: No Review of Systems - Review of Systems Is the patient limited [place]an proficient: Yes Constitutional: No: Chills, Diaphoresis, Fever HEENTM: No: Eye Pain, Blurred Vision, Tearing Respiratory: No: Cough, Orthopnea, Shortness of Breath Cardiac (ROS): No: Chest Pain, Edema, Irregular Heart Rate ABD/GI: No: Abdominal Distended, Constipated, Diarrhea, Nausea : Yes: Dysuria, Frequency. No: Flank Pain Musculoskeletal: No: Back Pain, Joint Pain Integumentary: Yes: See HPI Neurological: No: Headache, Numbness, Paresthesia Psychiatric: No: Anxiety, Depression, Frequent Crying Endocrine: No: Excessive Sweating, Flushing, Intolerance to Cold Hematologic/Lymphatic: No: Anemia, Blood Clots, Easy Bleeding *Physical Exam - Vital Signs Last Vital Signs Temp Pulse Resp BP Pulse Ox 97.3 F L 89 18 131/65 95 09/13/17 12:40 09/13/17 12:40 09/13/17 12:40 09/13/17 12:40 09/13/17 12:40 - Physical Exam Comments: GEN: AAOx3, NAD, Lying comfortably, itching during exam HEENT: PERRLA, EOMi CV: S1, S2, RRR LUNG: CTABL ABD: Soft, NT, ND, normoactive BS, no flank pain MSK: +1cm size abscess on upper back, open, draining thick yellow purulent fluid, no surrounding redness NEURO: CN 2-12 intact Medical Decision Making - Medical Decision Making 72yo diabetic F who had an I&D 7 weeks ago for a back abscess, discharged w/ Bactrim DS, but presents with an allergic reaction and continued thick purulent drainage. I suspect that the patient is allergic to Bactrim. I will give Benedryl PO and reassess. Wound cultures from 1 week ago grew Anaerobic cocci, so I will likely switch the antibiotic to Clindamycin. The abscess is still open. Bedside U/S completed, after expressing, underlying abscess is 1.5cm length x 0.5cm depth. I believe we can express much of the remaining fluid and repack the wound. Because the patient complained of urinary symptoms, I will check a UA -- Benedryl 50mg x1 PO -- Abscess express + packing -- UA + UCx 09/13/17 14:45 After benedryl the pruritis has stopped. Feels much improved. Advised to stop taking Bactrim. Added sulfa to allergies Abscess was expressed, flushed, packed, and closed. Will discharge w/ Clindamycin x 1 week. Urine is negative. *DC/Admit/Observation/Transfer Diagnosis at time of Disposition: Back abscess Allergic reaction caused by a drug Qualifiers: Encounter type: initial encounter Qualified Code(s): T78.40XA - Allergy, unspecified, initial encounter - Discharge Dispostion Disposition: HOME Condition at time of disposition: Improved Admit: No - Prescriptions Prescriptions: Clindamycin [Cleocin -] 300 mg PO Q6HPO #28 capsule - Referrals Referrals: Marcus Cooper MD [Staff Physician] - 7 days - Patient Instructions Printed Discharge Instructions: DI for Incision and Drainage of a Skin Abscess - Post Discharge Activity
[2017-09-13 13:51] LABS: URINE APPEARANCE CLEAR; URINE BILIRUBIN NEGATIVE (NEGATIVE); URINE BLOOD NEGATIVE (NEGATIVE); URINE COLOR YELLOW; URINE GLUCOSE (UA) 3+ (NEGATIVE); URINE KETONE NEGATIVE (NEGATIVE); URINE LEUK ESTERASE NEGATIVE (NEGATIVE); URINE NITRITE NEGATIVE (NEGATIVE); URINE PROTEIN NEGATIVE (NEGATIVE); URINE UROBILINOGEN NEGATIVE mg/dL (0.2-1.0)
--- NOTE | 2017-09-13 14:42 | PDOC ---
Attending Attestation - Resident Resident Name: Jeremy Terrell - ED Attending Attestation I have performed the following: I have examined & evaluated the patient, The case was reviewed & discussed with the resident, I agree w/resident's findings & plan, Exceptions are as noted - HPI HPI: 09/13/17 14:38 72-year-old female diabetic presents for assessment of her thoracic skin abscess that is status post incision and drainage 7 days ago. Possible ALLERGIC reaction to Bactrim without airway involvement. - Physicial Exam PE: 09/13/17 14:39 Afebrile Scattered urticaria Healing back abscess actively draining pus, no surrounding cellulitis, pocket is still patent. Evaluated by bedside ultrasound, tiny amount of fluid present. Airways clear, no wheezing, well-appearing - Medical Decision Making 09/13/17 14:40 Patient seen and evaluated with the resident. I agree with the overall evaluation, assessment, and management with the following summary of visit: 72-year-old female diabetic status post I and D of abscess one week ago, lost to follow-up with taking antibiotics, now presents with persistent drainage and wound check. Well-appearing, afebrile, wound care was performed, abscess repacked, will give strict return instructions and wound checks. switch bactrim to clindamycin given potential allergy understands return criteria
== END 2017-09-13 14:50 | disposition home or self-care (01) ==
LOC: JER 12:10
DX: T78.3XXA Angioneurotic edema, initial encounter (principal); T37.0X5A Adverse effect of sulfonamides, initial encounter; Z48.01 Encounter for change or removal of surgical wound dressing; E11.9 Type 2 diabetes mellitus without complications; Z79.84 Long term (current) use of oral hypoglycemic drugs
CPT/HCPCS: 81003; 87086; 99283-25

== ENCOUNTER 2017-09-16 10:08 | Emergency (ER) | payer OTHER, MEDICARE ==
[2017-09-16 10:23] VITALS: BP 122/66; PULSE 63; TEMP 97.9; BMI 25.8
--- NOTE | 2017-09-16 11:46 | PDOC ---
Suture Removal/Wound Check HPI - History of Present Illness Chief Complaint: Revisit,Wound Recheck Stated Complaint: ABSCESS FOLLOW-UP Time Seen by Provider: 09/16/17 11:37 History Source: Yes: Patient Exam Limitations: Yes: No Limitations Treated at: [facility] Ila Sims Date of Last ED visit: 09/13/17 - Previous ED Treatment Type of procedure performed on last visit: Yes: I&D of Abscess Antibiotics Prescribed: Yes Past History - Past Medical History Allergies/Adverse Reactions: Allergies Allergy/AdvReac Type Severity Reaction Status Date / Time codeine [Codeine] Allergy Severe Difficulty Verified 09/16/17 10:20 Breathing meperidine HCl [From Demerol] Allergy Severe Difficulty Verified 09/16/17 10:20 Breathing Penicillins Allergy Severe Difficulty Verified 09/16/17 10:20 Breathing Sulfa (Sulfonamide Allergy Mild Hives Verified 09/16/17 10:20 Antibiotics) apple juice Allergy Mild Hives/Itchi Uncoded 09/16/17 10:20 ng Home Medications: Ambulatory Orders Aspirin 81 mg PO DAILY 09/06/17 Canagliflozin [Invokana] 100 mg PO DAILY 09/06/17 Fenofibrate 160 mg PO DAILY 09/06/17 Ferrous Sulfate 325 mg PO TID 09/06/17 Insulin Glargine,Hum.rec.anlog [Lantus] 100 unit SQ HS 09/06/17 Lipase/Protease/Amylase [Creon Dr 24,000 Units Capsule] 1 each PO BID 09/06/17 Metoprolol Succinate [Toprol Xl] 25 mg PO DAILY 09/06/17 Montelukast Sodium [Singulair] 10 mg PO DAILY 09/06/17 Omeprazole 20 mg PO DAILY 09/06/17 Rosuvastatin Calcium [Crestor] 40 mg PO DAILY 09/06/17 Sitagliptin Phos/Metformin HCl [Janumet Xr 50-1,000 mg Tablet] 1 each PO DAILY 09/06/17 Clindamycin [Cleocin -] 300 mg PO Q6HPO #28 capsule 09/13/17 Anemia: No Asthma: Yes Cancer: No Cardiac Disorders: No CVA: No COPD: Yes CHF: No Dementia: No Diabetes: Yes (IDDM) GI Disorders: No Disorders: No HTN: Yes Hypercholesterolemia: Yes Liver Disease: No Seizures: No Thyroid Disease: No - Surgical History Abdominal Surgery: No Appendectomy: No Cardiac Surgery: No Cholecystectomy: Yes Lung Surgery: No Neurologic Surgery: No Orthopedic Surgery: No - Immunization History Immunization Up to Date: Yes - Suicide/Smoking/Psychosocial Hx Smoking Status: No (quit 2010) Smoking History: Never smoked Have you smoked in the past 12 months: No Number of Cigarettes Smoked Daily: 0 If you are a former smoker, when did you quit?: 2009 Information on smoking cessation initiated: No Hx Alcohol Use: No Drug/Substance Use Hx: No Substance Use Type: None Hx Substance Use Treatment: No Suture Removal/Wound Check PE - Physical Exam Laceration/Wound Check Symptoms: reports: Improved Comments: 09/18/17 09:46 upper back in the middle with dressing covering abscess that was drained and packed. pt here for packing removal. 09/18/17 09:47 wound is clean dry and there is no surrounding erythema or discharge. packing is intact Current Severity Level: None Pain Localization: None *Review of Systems - Review of Systems Able to Perform ROS?: Yes Constitutional: No: Symptoms Reported HEENTM: No: Symptoms Reported Respiratory: No: Symptoms reported Cardiac (ROS): No: Symptoms Reported ABD/GI: No: Symptoms Reported : No: Symptoms Reported Musculoskeletal: No: Symptoms Reported Procedures - Additional Procedures Progress: 09/18/17 09:50 packing removed , clean dry dressing placed. no discharge or drainage Medical Decision Making - Medical Decision Making 09/18/17 09:50 cc: packing removal from abscess that was drained. wound is clean and dry no redness or drainage sterile dressing placed follow up dc inst given *DC/Admit/Observation/Transfer Diagnosis at time of Disposition: Wound check, abscess - Discharge Dispostion Disposition: HOME Condition at time of disposition: Improved - Referrals Referrals: Marcus Cooper MD [Primary Care Provider] - - Patient Instructions Additional Instructions: keep dry finish all the antibiotics follow with your doctor for any worsening symptoms - Post Discharge Activity
== END 2017-09-16 12:11 | disposition home or self-care (01) ==
LOC: JERFT 10:08
DX: L02.212 Cutaneous abscess of back [any part, except buttock and flank] (principal)
CPT/HCPCS: 99281-25; G0463-25

== ENCOUNTER 2018-01-30 07:31 | Day surgery (SDC) | payer OTHER, MEDICARE ==
[2018-01-30] MEDS ORDERED: LIDOCAINE HCL/PF 2% SDV 5ML VIAL ONE (08:00)
[2018-01-30] MEDS ORDERED: PROPOFOL 20 ML ONE ×5 (08:00)
[2018-01-30] MEDS ORDERED: SUCCINYLCHOLINE CHLORIDE 200 MG/10 ML VIAL ONE (08:00)
[2018-01-30 08:23] VITALS: BMI 28.2
[2018-01-30 09:00] VITALS: TEMP 97.8
--- NOTE | 2018-01-30 09:08 | PROC ---
Endoscopy Procedure Endoscopy procedure completed. Please see scanned procedure report.
[2018-01-30 09:15] VITALS: BP 134/66; PULSE 57
--- NOTE | 2018-01-31 17:37 | PATH ---
Surgical Pathology Report Patient Name: JORJE LEWIS [facility]. Rec. #: [id number] /Age/Gender: 1945 (Age: 72) / F Account: [id number] Location: U-ENDOSCOPY Taken: 01/30/2018 Received: 01/30/2018 Reported: 01/31/2018 Physicians: Mamadou Reece M.D. Specimen(s) Received A: BX DUODENUM B: BX ANTRAL ULCER Clinical History History of gastric ulcer Postoperative diagnosis: Antral ulcer Final Diagnosis A. DUODENUM, BIOPSY: DUODENAL MUCOSA WITH MILD CHRONIC DUODENITIS. B. ANTRAL ULCER, BIOPSY: GASTRIC MUCOSA WITH MILD ACTIVE CHRONIC GASTRITIS. POSITIVE FOR INTESTINAL METAPLASIA. IMMUNOSTAIN IS NEGATIVE FOR H. PYLORI ORGANISMS. Electronically Signed Jeremiah Hurley M.D. Gross Description A. Received in formalin, labeled "biopsy duodenum" are 2 hopkins, irregular portions of soft tissue measuring 0.3 and 0.4 cm. in greatest dimension. The specimens are submitted in toto in one cassette. B. Received in formalin, labeled "biopsy antral ulcer" are 4 hopkins, irregular portions of soft tissue ranging from 0.1-0.4 cm. in greatest dimension. The specimens are submitted in toto in one cassette. /01/30/2018 saudi01/30/2018
== END 2018-01-30 10:45 | disposition home or self-care (01) ==
LOC: JASU-ENDO 07:31
PROVIDERS: ATTEND Internal Medicine Gastroenterology
PROC: 0DB68ZX Excision of Stomach, Via Natural or Artificial Opening Endoscopic, Diagnostic (ICD-10-PCS; 2018-01-30)
PROC: 0DB98ZX Excision of Duodenum, Via Natural or Artificial Opening Endoscopic, Diagnostic (ICD-10-PCS; principal; 2018-01-30 09:30)
DX: K25.9 Gastric ulcer, unspecified as acute or chronic, without hemorrhage or perforation (principal)
CPT/HCPCS: 88305-TC; 88342-TC

== ENCOUNTER 2019-04-19 14:20 | Observation (INO) | payer OTHER, MEDICARE ==
[2019-04-19 14:43] VITALS: BMI 29.0
--- NOTE | 2019-04-19 14:43 | PDOC ---
Rapid Medical Evaluation Chief Complaint: Chest Pain Time Seen by Provider: 04/19/19 14:42 Medical Evaluation: Allergies Allergy/AdvReac Type Severity Reaction Status Date / Time codeine [Codeine] Allergy Severe Difficulty Verified 09/16/17 10:20 Breathing meperidine HCl [From Demerol] Allergy Severe Difficulty Verified 09/16/17 10:20 Breathing Penicillins Allergy Severe Difficulty Verified 09/16/17 10:20 Breathing Sulfa (Sulfonamide Allergy Mild Hives Verified 09/16/17 10:20 Antibiotics) apple juice Allergy Mild Hives/Itchi Uncoded 09/16/17 10:20 ng 04/19/19 14:40 73 year old female send by Dr. Fong for evaluation of chest pain . patient reports chest pain this morning and has been having one for 1 week with [facility] [place] patient alert ox3. A: Chest pain P: labs EKG chest xray Discharge Disposition - Diagnosis Chest pain Qualifiers: Chest pain type: unspecified Qualified Code(s): R07.9 - Chest pain, unspecified - Referrals - Patient Instructions - Post Discharge Activity
--- NOTE | 2019-04-19 15:14 | PDOC ---
History of Present Illness - General Chief Complaint: Chest Pain Stated Complaint: SENT BY PCP Time Seen by Provider: 04/19/19 14:42 Past History - Past Medical History Allergies/Adverse Reactions: Allergies Allergy/AdvReac Type Severity Reaction Status Date / Time codeine [Codeine] Allergy Severe Difficulty Verified 04/19/19 14:41 Breathing meperidine HCl [From Demerol] Allergy Severe Difficulty Verified 04/19/19 14:41 Breathing Penicillins Allergy Severe Difficulty Verified 04/19/19 14:41 Breathing Sulfa (Sulfonamide Allergy Mild Hives Verified 04/19/19 14:41 Antibiotics) apple juice Allergy Mild Hives/Itchi Uncoded 04/19/19 14:41 ng Home Medications: Ambulatory Orders Aspirin 81 mg PO DAILY 09/06/17 Ferrous Sulfate 325 mg PO TID 09/06/17 Insulin Glargine,Hum.rec.anlog [Lantus] 28 unit SQ HS 09/06/17 Lipase/Protease/Amylase [Lizz Dr 24,000 Units Capsule] 1 each PO BID 09/06/17 Metoprolol Succinate [Toprol Xl] 25 mg PO DAILY 09/06/17 Sitagliptin Phos/Metformin HCl [Janumet Xr 50-1,000 mg Tablet] 1 each PO DAILY 09/06/17 Albuterol Sulfate Inhaler - [Ventolin Hfa Inhaler -] 1 - 2 inh PO QID PRN Atorvastatin Calcium 80 mg PO DAILY 01/30/18 Gabapentin [Neurontin -] 100 mg PO DAILY 01/30/18 Gabapentin [Neurontin -] 900 mg PO HS 01/30/18 Levothyroxine Sodium [Levoxyl] 25 mcg PO DAILY 01/30/18 Omeprazole 40 mg PO DAILY 30 Days #30 capsule. MDD 30 01/30/18 Ranitidine HCl 300 mg PO HS 01/30/18 Umeclidinium Brm/Vilanterol Tr [Anoro Ellipta 62.5-25 Mcg INH] 2 each IH DAILY 01/30/18 Albuterol Sulfate Inhaler - [Ventolin Hfa Inhaler -] 2 inh PO Q4H 04/19/19 Insulin (Novolog) [Novolog] 2 units SQ AC 04/19/19 Insulin Detemir [Levemir Flextouch] 28 unit SQ DAILY 04/19/19 Isosorbide Mononitrate [Imdur -] 30 mg PO DAILY 04/19/19 Melatonin 10 mg PO HS 04/19/19 Metoclopramide HCl [Reglan] 5 mg PO HS 04/19/19 Montelukast Sodium [Singulair] 10 mg PO DAILY 04/19/19 Naproxen [Naprosyn] 500 mg PO BID 04/19/19 Pramipexole Dihydrochloride [Mirapex -] 0.125 mg PO HS 04/19/19 Anemia: Yes (IRON DEFICIENCY) Asthma: Yes Cancer: No Cardiac Disorders: No CVA: No COPD: Yes CHF: No Dementia: No Diabetes: Yes (IDDM) GI Disorders: Yes (GASTRIC ULCER) Disorders: No HTN: Yes Hypercholesterolemia: Yes Liver Disease: No Seizures: No Thyroid Disease: Yes - Surgical History Abdominal Surgery: No Appendectomy: No Cardiac Surgery: No Cholecystectomy: Yes Lung Surgery: No Neurologic Surgery: No Orthopedic Surgery: No - Immunization History Immunization Up to Date: Yes - Suicide/Smoking/Psychosocial Hx Smoking Status: No (quit 2010) Smoking History: Never smoked Have you smoked in the past 12 months: No Number of Cigarettes Smoked Daily: 0 If you are a former smoker, when did you quit?: 2009 Hx Alcohol Use: No Drug/Substance Use Hx: No Substance Use Type: None Hx Substance Use Treatment: No *Physical Exam - Vital Signs Last Vital Signs Temp Pulse Resp BP Pulse Ox 98.1 F 77 18 129/66 96 04/19/19 14:41 04/19/19 14:41 04/19/19 14:41 04/19/19 14:41 04/19/19 14:41 Heart Score/ECG Review - History History: Moderately suspicious - Electrocardiogram EKG: Normal - Age Age: >/= 65 - Risk Factors Risk Factors Heart Score: Yes Hx Hypercholesterolemia, Yes Hx Hypertension, Yes Hx Diabetes Based on the list above the patient has:: >/=3 risk factors or Hx atherosclerotic disease - Troponin Troponin: </= normal limit - Score Heart Score - Total: 5 ED Treatment Course - LABORATORY CBC & Chemistry Diagram: 04/19/19 16:07 04/19/19 16:07 Medical Decision Making - Medical Decision Making HPI: 73yo F with PMH of HTN, HLD, DM, COPD, Asthma sent by her primary care physician for admission for chest pain. Patient states she has had chest pain for one week, it started when she was sitting and watching tv. Patient describes it as "aching" and "heartburn" and rated 5/10 with intermittent radiation to her right shoulder. Never felt this pain before. The pain will happen at rest, especially at night, but will come on with exertion. No nausea or vomiting. Patient endorsed feeling chest pain and also "flushed" while she was out and had to go home because she was feeling so poorly. Endorsing some shortness of breath associated with the chest pain and also with her asthma. No hemoptysis, no recent surgical history, no recent immobilization, no hormone use , no history of DVT or PE. Has never seen a sql consultant. Denies fevers and chills. PCP: Dr. Cobian ROS: Constitutional: no fever, +flushing HEENT: no throat pain, no dysphagia Cardiovascular: +chest pain, no palpitations Respiratory: +cough, +shortness of breath Gastrointestinal: no abdominal pain, no nausea Genitourinary: no dysuria, no hematuria Musculoskeletal: no myalgia, no arthralgia Skin: no rash, no itching Neurologic: no headache, no weakness PE: General: Awake, alert, and fully oriented, in no acute distress Head: No signs of trauma Eyes: EOMI, sclera anicteric ENT: Moist mucus membranes Neck: Normal ROM, supple Lungs: Lungs clear, Normal breath sounds Cardio: Regular rhythm, S1 and S2 present Abdomen: Soft, nontender Extremities: Normal range of motion, Distal pulses present, No calf tenderness SKIN: Warm, Dry, normal turgor Neurologic: Cranial nerves II through XII grossly intact. Normal speech ED Course/MDM: DDX including but not limited to ACS, PE, PNA, anemia, metabolic derangement Labs, EKG, CXR Per note from Dr. Cobian: "Admit under Dr. Cobian's serivce. Dr Fong for Cardiology" and "Patient sent to [facility] for cardiac work up with Dr. Fong and 24 hour observation." "ECHO reviewed from 09/2018: Left ventricle cavity is normal in size. Concentric hypertrophy of the left ventricle. No regional wall abnormalities are seen in the visualized segments. Calculated EF 62%. Trace tricuspid regurgitation." Per stress test on 06/18/17: Small subtle inferolateral reversible defect. Cannot rule out mild ischemia 04/19/19 15:14 EKG: rate 70, QTc 438, NSR 04/19/19 16:47 CXR as read by radiology: "Single AP view of the chest reveals a large heart, normal aorta, normal german and clear lung mckeon. The angles are sharp and the soft tissues are intact. There are degenerative changes. An acute process is not seen. Impression: No acute chest pathology." 04/19/19 17:01 CBC WBC 6.9 K/mm3 (4.0-10.0) 04/19/19 16:07 RBC 4.79 M/mm3 (3.60-5.2) 04/19/19 16:07 Hgb 14.1 GM/dL (10.7-15.3) 04/19/19 16:07 Hct 42.8 % (32.4-45.2) 04/19/19 16:07 MCV 89.4 fl (80-96) 04/19/19 16:07 MCH 29.4 pg (25.7-33.7) D 04/19/19 16:07 MCHC 32.9 g/dl (32.0-36.0) 04/19/19 16:07 RDW 13.3 % (11.6-15.6) D 04/19/19 16:07 Plt Count 217 K/MM3 (134-434) D 04/19/19 16:07 MPV 9.1 fl (7.5-11.1) 04/19/19 16:07 Absolute Neuts (auto) 3.9 K/mm3 (1.5-8.0) 04/19/19 16:07 Neutrophils % 55.4 % (42.8-82.8) 04/19/19 16:07 Lymphocytes % 29.5 % (8-40) 04/19/19 16:07 Monocytes % 7.6 % (3.8-10.2) 04/19/19 16:07 Eosinophils % 6.5 % (0-4.5) H 04/19/19 16:07 Basophils % 1.0 % (0-2.0) 04/19/19 16:07 Nucleated RBC % 0 % (0-0) 04/19/19 16:07 No leukocytosis CMP Sodium 139 mmol/L (136-145) 04/19/19 16:07 Potassium 4.6 mmol/L (3.5-5.1) 04/19/19 16:07 Chloride 103 mmol/L (98-107) 04/19/19 16:07 Carbon Dioxide 29 mmol/L (21-32) 04/19/19 16:07 Anion Gap 7 MMOL/L (8-16) L 04/19/19 16:07 BUN 12.9 mg/dL (7-18) 04/19/19 16:07 Creatinine 0.9 mg/dL (0.55-1.3) 04/19/19 16:07 Est GFR (CKD-EPI)AfAm 72.49 04/19/19 16:07 Est GFR (CKD-EPI)NonAf 62.55 04/19/19 16:07 Random Glucose 167 mg/dL (74-106) H 04/19/19 16:07 Calcium 9.7 mg/dL (8.5-10.1) 04/19/19 16:07 Total Bilirubin 0.4 mg/dL (0.2-1) 04/19/19 16:07 AST 35 U/L (15-37) 04/19/19 16:07 ALT 48 U/L (13-61) 04/19/19 16:07 Alkaline Phosphatase 94 U/L (45-117) 04/19/19 16:07 Creatine Kinase 70 U/L (26-192) 04/19/19 16:07 Troponin I < 0.02 ng/ml (0.00-0.05) 04/19/19 16:07 B-Natriuretic Peptide 216.6 pg/ml (5-450) 04/19/19 16:07 Total Protein 7.1 g/dl (6.4-8.2) 04/19/19 16:07 Albumin 3.7 g/dl (3.4-5.0) 04/19/19 16:07 Electrolytes unremarkable Tpn undetectable BNP normal Given advanced age, 3 risk factors, and moderately suspicious history, patient has a HEART score of 5. We will admit to telemetry. 04/19/19 17:19 Microblog sent to hospitalist team 04/19/19 17:[address] Grossman who accepted patient for admission under Dr. Cobian 04/19/19 17:56 *DC/Admit/Observation/Transfer Diagnosis at time of Disposition: Chest pain Qualifiers: Chest pain type: unspecified Qualified Code(s): R07.9 - Chest pain, unspecified - Discharge Dispostion Condition at time of disposition: Guarded Decision to Admit order: Yes - Referrals - Patient Instructions - Post Discharge Activity
--- NOTE | 2019-04-19 15:52 | PDOC ---
Attending Attestation - Resident Resident Name: Sarah Corona - ED Attending Attestation I have performed the following: I have examined & evaluated the patient, The case was reviewed & discussed with the resident, I agree w/resident's findings & plan, Exceptions are as noted
[2019-04-19 16:49] LABS: EOS % 6.5 % (0-4.5); HEMATOCRIT 42.8 % (32.4-45.2); HEMOGLOBIN 14.1 GM/dL (10.7-15.3); LYMPH % 29.5 % (8-40); MCH 29.4 pg (25.7-33.7); MCHC 32.9 g/dl (32.0-36.0); MEAN CELL VOLUME 89.4 fl (80-96); MEAN PLT VOLUME 9.1 fl (7.5-11.1); MONO % 7.6 % (3.8-10.2); NEUT % 55.4 % (42.8-82.8); PLATELET COUNT 217 K/MM3 (134-434); RBC 4.79 M/mm3 (3.60-5.2); RDW 13.3 % (11.6-15.6); WHITE BLOOD COUNT 6.9 K/mm3 (4.0-10.0)
[2019-04-19 17:03] LABS: INR 0.99 (0.83-1.09); PROTHROMBIN TIME (PATIENT) 11.7 SEC (9.7-13.0)
[2019-04-19 17:06] LABS: ACTIVATED PTT 32.1 SECONDS (25.2-36.5)
[2019-04-19 17:12] LABS: ALBUMIN 3.7 g/dl (3.4-5.0); ALK PHOS 94 U/L (45-117); ANION GAP 7 MMOL/L (8-16); BILIRUBIN,TOTAL 0.4 mg/dL (0.2-1); BLOOD UREA NITROGEN 12.9 mg/dL (7-18); CALCIUM 9.7 mg/dL (8.5-10.1); CHLORIDE 103 mmol/L (98-107); CO2 29 mmol/L (21-32); CREATININE 0.9 mg/dL (0.55-1.3); GLUCOSE,RANDOM 167 mg/dL (74-106); N-TERMINAL BNP 216.6 pg/ml (5-450); POTASSIUM 4.6 mmol/L (3.5-5.1); SGOT/AST 35 U/L (15-37); SGPT/ALT 48 U/L (13-61); SODIUM 139 mmol/L (136-145); TOT PROT 7.1 g/dl (6.4-8.2)
--- NOTE | 2019-04-19 19:03 | HP ---
CHIEF COMPLAINT: chest pain PCP: Dr. Cobian HISTORY OF PRESENT ILLNESS: Patient is a 73 year old female with history of hypertension, hyperlipidemia, COPD, asthma, diabetes mellitus, hypothyroidism, presents with complaint of chest pain. She endorses symptoms began approx. two weeks ago while she was walking. Symptoms were associated with facial flushing that lasted several hours before spontaneously resolving without any intervention. Pain described as sharp (similar to heartburn), localized to middle of her chest, without radiation rated 5/10 intensity. She endorses recent physical activity limitation as the chest pain occurs with walking or going up stairs. She states the chest pain is intermittent. Last ECHO 09.26 reveals ejetion fraction 62% with left ventricular hypertrophy Last stress test 06/2017 revealed subtle inferolateral septal defect. ER course was notable for: (1) EKG reveals normal sinus rhythm without ischemic changes. (2) Troponin 0.02 (3) Recent Travel: denies PAST MEDICAL HISTORY: hypertension, hyperlipidemia, COPD, asthma, diabetes mellitus, hypothyroidism PAST SURGICAL HISTORY: cholecystectomy Social History: Smoking: former smoker, quit 8 years ago. Admits smoking 2 packs per day for approx 50 years. Alcohol: denies Drugs: denies Lives at home with her two sons. Former cook. At baseline, ambulates without cane or walker. Family History: Allergies codeine [Codeine] Allergy (Severe, Verified 04/19/19 14:41) Difficulty Breathing meperidine HCl [From Demerol] Allergy (Severe, Verified 04/19/19 14:41) Difficulty Breathing Penicillins Allergy (Severe, Verified 04/19/19 14:41) Difficulty Breathing Sulfa (Sulfonamide Antibiotics) Allergy (Mild, Verified 04/19/19 14:41) Hives apple juice Allergy (Mild, Uncoded 04/19/19 14:41) Hives/Itching HOME MEDICATIONS: Home Medications Medication Instructions Recorded Aspirin 81 mg PO DAILY 09/06/17 Ferrous Sulfate 325 mg PO TID 09/06/17 Insulin Glargine,Hum.rec.anlog 28 unit SQ HS 09/06/17 [Lantus] Lipase/Protease/Amylase [Creon Dr 1 each PO BID 09/06/17 24,000 Units Capsule] Metoprolol Succinate [Toprol Xl] 25 mg PO DAILY 09/06/17 Sitagliptin Phos/Metformin HCl 1 each PO DAILY 09/06/17 [Janumet Xr 50-1,000 mg Tablet] Albuterol Sulfate Inhaler - 1 - 2 inh PO QID PRN 01/30/18 [Ventolin Hfa Inhaler -] Atorvastatin Calcium 80 mg PO DAILY 01/30/18 Gabapentin [Neurontin -] 100 mg PO DAILY 01/30/18 Gabapentin [Neurontin -] 900 mg PO HS 01/30/18 Levothyroxine Sodium [Levoxyl] 25 mcg PO DAILY 01/30/18 Omeprazole 40 mg PO DAILY 30 Days #30 01/30/18 capsule. MDD 30 Ranitidine HCl 300 mg PO HS 01/30/18 Umeclidinium Brm/Vilanterol Tr 2 each IH DAILY 01/30/18 [Anoro Ellipta 62.5-25 Mcg INH] Albuterol Sulfate Inhaler - 2 inh PO Q4H 04/19/19 [Ventolin Hfa Inhaler -] Insulin (Novolog) [Novolog] 2 units SQ AC 04/19/19 Insulin Detemir [Levemir Flextouch] 28 unit SQ DAILY 04/19/19 Isosorbide Mononitrate [Imdur -] 30 mg PO DAILY 04/19/19 Melatonin 10 mg PO HS 04/19/19 Metoclopramide HCl [Reglan] 5 mg PO HS 04/19/19 Montelukast Sodium [Singulair] 10 mg PO DAILY 04/19/19 Naproxen [Naprosyn] 500 mg PO BID 04/19/19 Pramipexole Dihydrochloride 0.125 mg PO HS 04/19/19 [Mirapex -] REVIEW OF SYSTEMS CONSTITUTIONAL: Absent: fever, chills, diaphoresis, generalized weakness, malaise, loss of appetite, weight change HEENT: Absent: rhinorrhea, nasal congestion, throat pain, throat swelling, difficulty swallowing, mouth swelling, ear pain, eye pain, visual changes CARDIOVASCULAR: Admits: chest pain (resolved). Absent: syncope, palpitations, irregular heart rate, lightheadedness, peripheral edema RESPIRATORY: Admits: shortness of breath (resolved). Absent: cough, dyspnea with exertion, orthopnea, wheezing, stridor, hemoptysis GASTROINTESTINAL: Absent: abdominal pain, abdominal distension, nausea, vomiting, diarrhea, constipation, melena, hematochezia GENITOURINARY: Absent: dysuria, frequency, urgency, hesitancy, hematuria, flank pain, genital pain MUSCULOSKELETAL: Absent: myalgia, arthralgia, joint swelling, back pain, neck pain SKIN: Absent: rash, itching, pallor HEMATOLOGIC/IMMUNOLOGIC: Absent: easy bleeding, easy bruising, lymphadenopathy, frequent infections ENDOCRINE: Absent: unexplained weight gain, unexplained weight loss, heat intolerance, cold intolerance NEUROLOGIC: Absent: headache, focal weakness or paresthesias, dizziness, unsteady gait, seizure, mental status changes, bladder or bowel incontinence PSYCHIATRIC: Absent: anxiety, depression, suicidal or homicidal ideation, hallucinations. PHYSICAL EXAMINATION Vital Signs - 24 hr 04/19/19 04/19/19 14:41 15:24 Temperature 98.1 F Pulse Rate 77 Respiratory 18 Rate Blood Pressure 129/66 O2 Sat by Pulse 96 99 Oximetry (%) GENERAL: Awake, alert, and fully oriented, in no acute distress. HEAD: Normal with no signs of trauma. EYES: Pupils equal, round and reactive to light, extra-ocular movements intact, sclera anicteric, conjunctiva clear. EARS, NOSE, THROAT: Oropharynx clear without exudates. Moist mucous membranes. NECK: Normal range of motion, supple without lymphadenopathy. LUNGS: Breath sounds equal, clear to auscultation bilaterally. No wheezes, and no crackles. No accessory muscle use. HEART: Regular rate and rhythm, normal S1 and S2 without murmur, rub or gallop. ABDOMEN: Soft, nontender to light or deep palpation, not distended. Normoactive bowel sounds x4 quadrants. No guarding, no rebound tenderness. No hepatomegaly palpated or percussed. MUSCULOSKELETAL: Normal range of motion at all joints. No bony deformities or tenderness. EXTREMITIES: 2+ radial, dorsalis pedis pulses bilaterally, warm, well-perfused. No peripheral edema. NEUROLOGICAL: Cranial nerves II-XII intact. Normal speech. No gross focal deficits. PSYCHIATRIC: Cooperative. Good eye contact. Appropriate mood and affect. SKIN: Warm, dry. Laboratory Results - last 24 hr 04/19/19 04/19/19 04/19/19 16:07 16:07 16:07 WBC 6.9 RBC 4.79 Hgb 14.1 Hct 42.8 MCV 89.4 MCH 29.4 D MCHC 32.9 RDW 13.3 D Plt Count 217 D MPV 9.1 Absolute Neuts (auto) 3.9 Neutrophils % 55.4 Lymphocytes % 29.5 Monocytes % 7.6 Eosinophils % 6.5 H Basophils % 1.0 Nucleated RBC % 0 PT with INR 11.70 INR 0.99 PTT (Actin FS) 32.1 Sodium 139 Potassium 4.6 Chloride 103 Carbon Dioxide 29 Anion Gap 7 L BUN 12.9 Creatinine 0.9 Est GFR (CKD-EPI)AfAm 72.49 Est GFR (CKD-EPI)NonAf 62.55 Random Glucose 167 H Calcium 9.7 Total Bilirubin 0.4 AST 35 ALT 48 Alkaline Phosphatase 94 Creatine Kinase 70 Troponin I < 0.02 B-Natriuretic Peptide 216.6 Total Protein 7.1 Albumin 3.7 ASSESSMENT/PLAN: Patient is a 73 year old female with history of hypertension, hyperlipidemia, COPD, asthma, diabetes mellitus, hypothyroidism, presents with complaint of chest pain. Chest pain; concern for ischemia, coronary artery disease -Necessary to rule out ACS; initial ECG without ischemic changes. Initial Troponin negative. -Follow repeat EKG, repeat Troponin. -Aspirin 324mg PO STAT; continue with aspirin 81mg PO daily -Lovenox 80mg subq one time (therapeutic) dose -Nitroglycerin sublingual for chest pain; inform MD immediately if administered. -Cardiac monitoring -Transthoracic cardiac ECHO -Chest radiograph -Cardiology evaluation (Dr. Fong) appreciated. Hypertension -Isosorbide mononitrate 30mg PO daily -Metoprolol 25mg PO daily Hyperlipidemia -Atorvastatin 80mg PO HS Hypothyroidism -Levothyroxine 25mcg PO daily -Follow TSH Diabetes Mellitus -Insulin sliding scale ACHS -Fingerstick blood glucose monitoring ACHS COPD -Currently not in exacerbation. -DuoNebs Q6H PRN -Anoro Ellipta -Singulair 10mg PO HS FEN -Fluids: Gentle hydration while NPO; IV normal saline at 50cc/ hour -Electrolytes: Monitor CMP, replete as necessary -Nutrition: NPO after midnight Prophylaxis -Lovenox 80mg subq; one time therapeutic dose Disposition -Admit for Telemetry observation ATTENDING PHYSICIAN STATEMENT I saw and evaluated the patient. I reviewed the resident's note and discussed the case with the resident. I agree with the resident's findings and plan as documented. SUBJECTIVE: OBJECTIVE: ASSESSMENT AND PLAN:
[2019-04-19] MEDS ORDERED: NITROGLYCERIN SUBLINGUAL 1/150 0.4 MG TAB SL PRN (19:06)
[2019-04-19] MEDS ORDERED: ASPIRIN 325 MG ENTERIC COATED TABLET (FP) PO ONE (19:15)
[2019-04-19] MEDS ORDERED: SODIUM CHLORIDE 1,000 ML IV SCH (19:15)
[2019-04-19] MEDS ORDERED: ASPIRIN 325 MG ENTERIC COATED TABLET (FP) ONE (19:36)
--- NOTE | 2019-04-19 19:47 | PN ---
Teaching Attending Note Name of Resident: Kory Grossman ATTENDING PHYSICIAN STATEMENT I saw and evaluated the patient. I reviewed the resident's note and discussed the case with the resident. I agree with the resident's findings and plan as documented. SUBJECTIVE: Chest pain free currently. No palpitations/SOB. OBJECTIVE: Afebrile, hemodnamically stable. Last Vital Signs Temp Pulse Resp BP Pulse Ox 98.1 F 77 18 129/66 99 04/19/19 14:41 04/19/19 14:41 04/19/19 14:41 04/19/19 14:41 04/19/19 15:24 HEENT - Atraumatic, Normocephalic. Heart - S1, S2, RRR Lungs - Clear to auscultation Abdomen - soft, non-tender. High BMI. Bowel Sounds normal. Extremities - No edema, no calf tenderness. Neuro - AAO x 3. Tone/Power normal all 4 extremities. Laboratory Results - last 24 hr 04/19/19 04/19/19 04/19/19 16:07 16:07 16:07 WBC 6.9 RBC 4.79 Hgb 14.1 Hct 42.8 MCV 89.4 MCH 29.4 D MCHC 32.9 RDW 13.3 D Plt Count 217 D MPV 9.1 Absolute Neuts (auto) 3.9 Neutrophils % 55.4 Lymphocytes % 29.5 Monocytes % 7.6 Eosinophils % 6.5 H Basophils % 1.0 Nucleated RBC % 0 PT with INR 11.70 INR 0.99 PTT (Actin FS) 32.1 Sodium 139 Potassium 4.6 Chloride 103 Carbon Dioxide 29 Anion Gap 7 L BUN 12.9 Creatinine 0.9 Est GFR (CKD-EPI)AfAm 72.49 Est GFR (CKD-EPI)NonAf 62.55 Random Glucose 167 H Calcium 9.7 Total Bilirubin 0.4 AST 35 ALT 48 Alkaline Phosphatase 94 Creatine Kinase 70 Troponin I < 0.02 B-Natriuretic Peptide 216.6 Total Protein 7.1 Albumin 3.7 Current Medications Generic Name Dose Route Start Last Admin Trade Name Freq PRN Reason Stop Dose Admin Aspirin 81 mg 04/20/19 10:00 Asa - PO DAILY JONNIE Atorvastatin Calcium 80 mg 04/20/19 22:00 Lipitor - PO HS JONNIE Sodium Chloride 1,000 mls @ 50 mls/hr 09/12/19 19:15 Normal Saline - IV 04/20/19 15:14 ASDIR JONNIE Isosorbide Mononitrate 30 mg 04/20/19 10:00 Imdur - PO DAILY JONNIE Levothyroxine Sodium 25 mcg 04/20/19 07:00 Synthroid - PO AM JONNIE Montelukast Sodium 10 mg 04/20/19 22:00 Singulair - PO HS [facility] Nitroglycerin 0.4 mg 04/19/19 19:06 Nitrostat - SL Q5M PRN CHEST PAIN Umeclidinium/Vilanterol 1 puff 04/20/19 10:00 Anoro Ellipta 62.5-25 Mcg Inh IH DAILY [facility] Home Medications Medication Instructions Recorded Aspirin 81 mg PO DAILY 09/06/17 Ferrous Sulfate 325 mg PO TID 09/06/17 Insulin Glargine,Hum.rec.anlog 28 unit SQ HS 09/06/17 [Lantus] Lipase/Protease/Amylase [Lizz Dr 1 each PO BID 09/06/17 24,000 Units Capsule] Metoprolol Succinate [Toprol Xl] 25 mg PO DAILY 09/06/17 Sitagliptin Phos/Metformin HCl 1 each PO DAILY 09/06/17 [Janumet Xr 50-1,000 mg Tablet] Albuterol Sulfate Inhaler - 1 - 2 inh PO QID PRN 01/30/18 [Ventolin Hfa Inhaler -] Atorvastatin Calcium 80 mg PO DAILY 01/30/18 Gabapentin [Neurontin -] 100 mg PO DAILY 01/30/18 Gabapentin [Neurontin -] 900 mg PO HS 01/30/18 Levothyroxine Sodium [Levoxyl] 25 mcg PO DAILY 01/30/18 Omeprazole 40 mg PO DAILY 30 Days #30 01/30/18 capsule. MDD 30 Ranitidine HCl 300 mg PO HS 01/30/18 Umeclidinium Brm/Vilanterol Tr 2 each IH DAILY 01/30/18 [Anoro Ellipta 62.5-25 Mcg INH] Albuterol Sulfate Inhaler - 2 inh PO Q4H 04/19/19 [Ventolin Hfa Inhaler -] Insulin (Novolog) [Novolog] 2 units SQ AC 04/19/19 Insulin Detemir [Levemir Flextouch] 28 unit SQ DAILY 04/19/19 Isosorbide Mononitrate [Imdur -] 30 mg PO DAILY 04/19/19 Melatonin 10 mg PO HS 04/19/19 Metoclopramide HCl [Reglan] 5 mg PO HS 04/19/19 Montelukast Sodium [Singulair] 10 mg PO DAILY 04/19/19 Naproxen [Naprosyn] 500 mg PO BID 04/19/19 Pramipexole Dihydrochloride 0.125 mg PO HS 04/19/19 [Mirapex -] ASSESSMENT AND PLAN: 73 year old female with history of HTN, HLD, COPD/Asthma, DM 2, Hypothyroidism, presents with 2 week history of intermittent chest pain, initially onset on exertion, now at rest, associated with flushing. No palpations/lightheadedness/ shortness of breath. 1. Chest Pain concerning for Ischemia ECG - no acute changes TropI negative Most recent Stress Test 06/2017 revealed subtle inferolateral septal defect. Telemetry admission, serial tropI/ECGs NTG PRN for chest pain Load with Aspirin and give 1 dose Lovenox SQ pending Cardiology evaluation. CXR, Echo requested. Cardio consult. 2. HTN - continue ISMN, Metoprolol. 3. HLD - continue Statin 4. Hypothyroidism - Continue Levothyroxine. TSH requested. 5. COPD - Stable. No evidence of acute exacerbation. Continue Anoro Ellipta, Albuterol prn 6. DM 2 - Maintain on Novolog sliding scale as will be NPO from midnight. DVT Px - Will receive 1 dose treatment dose Lovenox this evening
[2019-04-19] MEDS ORDERED: ENOXAPARIN NA (PORCINE) 80 MG/0.8 ML DISP.SYRIN SQ ONE ×2 (19:48→20:33)
[2019-04-19] MEDS: INSULIN SLIDING SCALE (NOVOLOG) 1 VIAL SQ SCH (22:05)
[2019-04-20] MEDS ORDERED: LEVOTHYROXINE NA 25 MCG TABLET (FP) ONE (06:34)
[2019-04-20] MEDS: INSULIN SLIDING SCALE (NOVOLOG) 1 VIAL SQ SCH (06:41)
[2019-04-20] MEDS: LEVOTHYROXINE NA 25 MCG TABLET (FP) PO SCH (06:41)
[2019-04-20 07:27] LABS: HEMOGLOBIN 13.8 GM/dL (10.7-15.3); MCH 30.1 pg (25.7-33.7); MCHC 33.8 g/dl (32.0-36.0); MEAN CELL VOLUME 89.3 fl (80-96); MEAN PLT VOLUME 9.3 fl (7.5-11.1); PLATELET COUNT 187 K/MM3 (134-434); RBC 4.59 M/mm3 (3.60-5.2); RDW 13.7 % (11.6-15.6); WHITE BLOOD COUNT 6.7 K/mm3 (4.0-10.0)
[2019-04-20] MEDS ORDERED: ISOSORBIDE MONONITRATE 60 MG TAB.SR.24H (FP) PO ONE (10:31)
[2019-04-20] MEDS ORDERED: ASPIRIN 81 MG CHEWABLE TABLETS ONE (10:31)
[2019-04-20] MEDS: ASPIRIN 81 MG CHEWABLE TABLETS PO SCH (10:33)
--- NOTE | 2019-04-20 10:33 | ECHO ---
Name: JORJE LEWIS Exam:Adult Echocardiogram Study Date: 04/20/2019 08:23 AM Age: 73 yrs Reason For Study: Chest pain Height: 66 in Weight: 180 lb BSA: 1.9 m2 MMode/2D Measurements & Calculations IVSd: 1.0 cm Ao root diam: 2.6 cm LVIDd: 4.1 cm LA dimension: 3.0 cm LVIDs: 2.8 cm LVPWd: 0.91 cm EDV(Teich): 72.2 ml LVOT diam: 2.0 cm ESV(Teich): 30.4 ml LAV (MOD-bp): 22.9 ml Doppler Measurements & Calculations MV E max wayne: 93.1 cm/sec Ao V2 max: 190.0 cm/sec MV A max wayne: 88.8 cm/sec Ao max P.4 mmHg MV E/A: 1.0 MV dec time: 0.14 sec ZEYAD(V,D): 2.4 cm2 LV V1 max P.0 mmHg TR max wayne: 292.6 cm/sec LV V1 max: 150.4 cm/sec TR max P.7 mmHg PA V2 max: 105.9 cm/sec Med Peak E' Wayne: 6.0 cm/sec PA max P.5 mmHg Med E/e': 15.6 Lat Peak E' Wayne: 7.9 cm/sec Lat E/e': 11.7 Procedure The study was technically difficult with many images being suboptimal in quality. Left Ventricle Left ventricular systolic function is normal. Ejection Fraction = 55-60%. The transmitral spectral Do ppler flow pattern is normal for age. Regional wall motion abnormalities cannot be excluded due to limited visualization. Right Ventricle The right ventricle is grossly normal size. The right ventricular systolic function is grossly normal . Atria Normal left and right atrial size and function. Mitral Valve The mitral valve is normal in structure and function. There is no mitral valve stenosis. There is mil d mitral regurgitation. Tricuspid Valve The tricuspid valve is normal in structure and function. There is mild tricuspid regurgitation. Right ventricular systolic pressure is elevated at 30-40mmHg. Aortic Valve The aortic valve is trileaflet. No hemodynamically significant valvular aortic stenosis. No aortic regurgitation is present. Pulmonic Valve The pulmonic valve is not well seen, but is grossly normal. There is no pulmonic valvular stenosis. T here is no pulmonic valvular regurgitation. Great Vessels The aortic root is normal size. Pericardium/Pleura There is no pericardial effusion. Interpretation Summary The study was technically difficult with many images being suboptimal in quality. Regional wall motion abnormalities cannot be excluded due to limited visualization. Left ventricular systolic function is normal. Ejection Fraction = 55-60%. There is mild mitral regurgitation. There is mild tricuspid regurgitation. Right ventricular systolic pressure is elevated at 30-40mmHg. There is no pericardial effusion. MD De Jesus *Juan Pablo 04/20/2019 10:32 AM
[2019-04-20] MEDS: metoPROLOL SUCCINATE 25 MG TAB.SR.24H (FP) PO SCH (10:34)
[2019-04-20] MEDS: ISOSORBIDE MONONITRATE 30 MG TAB.SR.24H (FP) PO SCH (10:34)
[2019-04-20] MEDS: UMECLIDINIUM/VILANTEROL (ANORO) 62.5/25 MCG INHALER IH SCH (11:08)
[2019-04-20] MEDS ORDERED: ALBUTEROL SO4 2.5/IPRATROPIUM 0.5 INH SOL 3 ML VIAL.NEB. NEB PRN (12:37)
--- NOTE | 2019-04-20 12:37 | PN ---
Progress Note, Physician Chief Complaint: AWAKE ALERT NOTES REVIEED SENT FROM MY OFFICE CHESTPAIN/SOB - Current Medication List Current Medications: Active Medications Aspirin (Asa -) 81 mg PO DAILY [facility] Last Admin: 04/20/19 10:33 Dose: 81 mg Atorvastatin Calcium (Lipitor -) 80 mg PO HS [facility] Sodium Chloride (Normal Saline -) 1,000 mls @ 50 mls/hr IV ASDIR [facility] Stop: 04/20/19 15:14 Last Admin: 04/19/19 19:41 Dose: 50 mls/hr Insulin Aspart (Novolog Vial Sliding Scale -) 1 vial SQ ACHS [facility]; Protocol Last Admin: 04/20/19 06:41 Dose: Not Given Isosorbide Mononitrate (Imdur -) 30 mg PO DAILY [facility] Last Admin: 04/20/19 10:34 Dose: 30 mg Levothyroxine Sodium (Synthroid -) 25 mcg PO AM [facility] Last Admin: 04/20/19 06:41 Dose: 25 mcg Metoprolol Succinate (Toprol Xl -) 25 mg PO DAILY [facility] Last Admin: 04/20/19 10:34 Dose: 25 mg Montelukast Sodium (Singulair -) 10 mg PO HS [facility] Nitroglycerin (Nitrostat -) 0.4 mg SL Q5M PRN PRN Reason: CHEST PAIN Umeclidinium/Vilanterol (Anoro Ellipta 62.5-25 Mcg Inh) 1 puff IH DAILY [facility] Last Admin: 04/20/19 11:08 Dose: 1 puff - Objective Vital Signs: Vital Signs Temperature 98.2 F 04/20/19 07:06 Pulse Rate 72 04/20/19 11:58 Respiratory Rate 18 04/20/19 11:58 Blood Pressure 140/70 04/20/19 11:58 O2 Sat by Pulse Oximetry (%) 97 04/20/19 11:58 Constitutional: Yes: Mild Distress Cardiovascular: Yes: Regular Rate and Rhythm Respiratory: Yes: Diminished Gastrointestinal: Yes: Soft, Abdomen, Obese Genitourinary: Yes: WNL Musculoskeletal: Yes: WNL Extremities: Yes: WNL Edema: No Neurological: Yes: WNL ...Motor Strength: WNL Psychiatric: Yes: WNL Labs: CBC, BMP 04/20/19 07:00 04/19/19 16:07 INR, PTT INR 0.99 (0.83-1.09) 04/19/19 16:07 Problem List - Problems (1) COPD (chronic obstructive pulmonary disease) Code(s): J44.9 - CHRONIC OBSTRUCTIVE PULMONARY DISEASE, UNSPECIFIED (2) Dyspnea Code(s): R06.00 - DYSPNEA, UNSPECIFIED (3) Chest pain Code(s): R07.9 - CHEST PAIN, UNSPECIFIED Qualifiers: Chest pain type: unspecified Qualified Code(s): R07.9 - Chest pain, unspecified Assessment/Plan ECHO DONE NO ACUTE CHANGES AWAITING CARDIO/PULM EVAL COPD? NEED NEBS MAY NEED STRESS TEST PPI STARTED DVT PROPHYLAXIS
--- NOTE | 2019-04-20 13:21 | CON.CARD ---
Consult Consult Specialty:: Cardiology Referred by:: Aranza Reason for Consultation:: cp - History of Present Illness Chief Complaint: chest pain History of Present Illness: Patient is a 73 year old female with history of hypertension, hyperlipidemia, COPD, asthma, diabetes mellitus, hypothyroidism, presents with complaint of chest pain. She endorses symptoms began approx. two weeks ago while she was walking. Symptoms were associated with facial flushing that lasted several hours before spontaneously resolving without any intervention. Pain described as sharp (similar to heartburn), localized to middle of her chest, without radiation rated 5/10 intensity. She endorses recent physical activity limitation as the chest pain occurs with walking or going up stairs. She states the chest pain is intermittent. Last ECHO 09.26 reveals ejetion fraction 62% with left ventricular hypertrophy Last stress test 06/2017 revealed subtle inferolateral septal defect. echo 04/20/19 nlef mild mr/tr - History Source History Provided By: Patient, Medical Record - Past Medical History Cardio/Vascular: Yes: HTN, Hyperlipdemia Pulmonary: Yes: Asthma, COPD Gastrointestinal: Yes: Other (lap choly in past) Musculoskeletal: Yes: Chronic low back pain - Past Surgical History Past Surgical History: Yes: Cholecystectomy (18 years ago) - Alcohol/Substance Use Hx Alcohol Use: No History of Substance Use: reports: None - Smoking History Smoking history: Never smoked Have you smoked in the past 12 months: No Aproximately how many cigarettes per day: 0 If you are a former smoker, when did you quit?: 2009 - Social History History of Recent Travel: No Home Medications - Allergies Allergies/Adverse Reactions: Allergies Allergy/AdvReac Type Severity Reaction Status Date / Time codeine [Codeine] Allergy Severe Difficulty Verified 04/19/19 14:41 Breathing meperidine HCl [From Demerol] Allergy Severe Difficulty Verified 04/19/19 14:41 Breathing Penicillins Allergy Severe Difficulty Verified 04/19/19 14:41 Breathing Sulfa (Sulfonamide Allergy Mild Hives Verified 04/19/19 14:41 Antibiotics) apple juice Allergy Mild Hives/Itchi Uncoded 04/19/19 14:41 ng - Home Medications Home Medications: Ambulatory Orders Aspirin 81 mg PO DAILY 09/06/17 Ferrous Sulfate 325 mg PO TID 09/06/17 Insulin Glargine,Hum.rec.anlog [Lantus] 28 unit SQ HS 09/06/17 Lipase/Protease/Amylase [Lizz Lees 24,000 Units Capsule] 1 each PO BID 09/06/17 Metoprolol Succinate [Toprol Xl] 25 mg PO DAILY 09/06/17 Sitagliptin Phos/Metformin HCl [Janumet Xr 50-1,000 mg Tablet] 1 each PO DAILY 09/06/17 Albuterol Sulfate Inhaler - [Ventolin Hfa Inhaler -] 1 - 2 inh PO QID PRN Atorvastatin Calcium 80 mg PO DAILY 01/30/18 Gabapentin [Neurontin -] 100 mg PO DAILY 01/30/18 Gabapentin [Neurontin -] 900 mg PO HS 01/30/18 Levothyroxine Sodium [Levoxyl] 25 mcg PO DAILY 01/30/18 Omeprazole 40 mg PO DAILY 30 Days #30 capsule.dr WRIGHT 30 01/30/18 Ranitidine HCl 300 mg PO HS 01/30/18 Umeclidinium Brm/Vilanterol Tr [Anoro Ellipta 62.5-25 Mcg INH] 2 each IH DAILY 01/30/18 Albuterol Sulfate Inhaler - [Ventolin Hfa Inhaler -] 2 inh PO Q4H 04/19/19 Insulin (Novolog) [Novolog] 2 units SQ AC 04/19/19 Insulin Detemir [Levemir Flextouch] 28 unit SQ DAILY 04/19/19 Isosorbide Mononitrate [Imdur -] 30 mg PO DAILY 04/19/19 Melatonin 10 mg PO HS 04/19/19 Metoclopramide HCl [Reglan] 5 mg PO HS 04/19/19 Montelukast Sodium [Singulair] 10 mg PO DAILY 04/19/19 Naproxen [Naprosyn] 500 mg PO BID 04/19/19 Pramipexole Dihydrochloride [Mirapex -] 0.125 mg PO HS 04/19/19 Vital Signs: Vital Signs Temperature 98.2 F 04/20/19 07:06 Pulse Rate 72 04/20/19 11:58 Respiratory Rate 18 04/20/19 11:58 Blood Pressure 140/70 04/20/19 11:58 O2 Sat by Pulse Oximetry (%) 97 04/20/19 11:58 Constitutional: Yes: No Distress, Calm Eyes: Yes: Conjunctiva Clear, EOM Intact HENT: Yes: Normocephalic Neck: Yes: Trachea Midline Respiratory: Yes: CTA Bilaterally Gastrointestinal: Yes: Normal Bowel Sounds, Soft Cardiovascular: Yes: Regular Rate and Rhythm JVD: No Carotid Bruit: No PMI: Non-Displaced Heart Sounds: Yes: S1, S2 Extremities: Yes: WNL Edema: No Peripheral Pulses WNL: Yes - Other Data Labs, Other Data: CBC, BMP 04/20/19 07:00 INR, PTT INR 0.99 (0.83-1.09) 04/19/19 16:07 Troponin, BNP 04/19/19 04/19/19 16:07 20:40 Troponin I < 0.02 < 0.02 B-Natriuretic Peptide 216.6 Troponin, BNP 04/19/19 04/19/19 16:07 20:40 Troponin I < 0.02 < 0.02 B-Natriuretic Peptide 216.6 Imaging - Results Chest X-ray: Report Reviewed (zina) EKG: Report Reviewed (nsr nlecg) Assessment/Plan Patient is a 73 year old female with history of hypertension, hyperlipidemia, COPD, asthma, diabetes mellitus, hypothyroidism, presents with complaint of chest pain. She endorses symptoms began approx. two weeks ago while she was walking. Symptoms were associated with facial flushing that lasted several hours before spontaneously resolving without any intervention. Pain described as sharp (similar to heartburn), localized to middle of her chest, without radiation rated 5/10 intensity. She endorses recent physical activity limitation as the chest pain occurs with walking or going up stairs. She states the chest pain is intermittent. Last ECHO 09.26 reveals ejetion fraction 62% with left ventricular hypertrophy Last stress test 06/2017 revealed subtle inferolateral septal defect. Echo 04/20/19 nlef mild MR/TR Plan: -finish hair serial cpk tnI -echo is normal -lexiscan nuclear stress test tuesday. -cath if recurs or tnI positive. -asa -add imdur 30 mg daily
[2019-04-20] MEDS: PANTOPRAZOLE 40 MG TABLET (FP) PO SCH ×2 (13:36→21:42)
[2019-04-20 13:47] LABS: ALBUMIN 3.3 g/dl (3.4-5.0); BILIRUBIN,TOTAL 0.3 mg/dL (0.2-1); CREATININE 0.8 mg/dL (0.55-1.3); MAGNESIUM 2.1 mg/dL (1.8-2.4); PHOSPHOROUS 3.6 mg/dL (2.5-4.9); POTASSIUM 4.6 mmol/L (3.5-5.1); TOT PROT 6.6 g/dl (6.4-8.2)
--- NOTE | 2019-04-20 14:04 | EKG ---
Test Reason : Blood Pressure : / mmHG Vent. Rate : 065 BPM Atrial Rate : 065 BPM P-R Int : 192 ms QRS Dur : 072 ms QT Int : 434 ms P-R-T Axes : 069 013 020 degrees QTc Int : 451 ms SINUS RHYTHM WITH PREMATURE ATRIAL COMPLEXES IN A PATTERN OF BIGEMINY LOW VOLTAGE QRS BORDERLINE ECG WHEN COMPARED WITH ECG OF 18-JUN-2017 06:58, PREMATURE ATRIAL COMPLEXES ARE NOW PRESENT NONSPECIFIC T WAVE ABNORMALITY NOW EVIDENT IN INFERIOR LEADS Confirmed by ARIANA MCKNIGHT MD ([id number]) on 04/20/2019 2:04:10 PM Referred By: Confirmed By:ARIANA MCKNIGHT MD
--- NOTE | 2019-04-20 14:08 | EKG ---
Test Reason : Blood Pressure : / mmHG Vent. Rate : 070 BPM Atrial Rate : 070 BPM P-R Int : 168 ms QRS Dur : 076 ms QT Int : 406 ms P-R-T Axes : 053 005 044 degrees QTc Int : 438 ms NORMAL SINUS RHYTHM NORMAL ECG WHEN COMPARED WITH ECG OF 18-JUN-2017 06:58, NO SIGNIFICANT CHANGE WAS FOUND Confirmed by ARIANA MCKNIGHT MD ([id number]) on 04/20/2019 2:07:29 PM Referred By: Confirmed By:ARIANA MCKNIGHT MD
--- NOTE | 2019-04-20 14:39 | PN ---
Progress Note (short form) - Note Progress Note: PULMONARY CONSULTATION DICTATED 04/20/19 IMP CHEST PAIN SYNDROME COPD HTN HYPOTHYROID DM PULMONARY HTN LIKELY OSAS PLAN CARDIAC ENZYMES O2 INHALED BRONCHODILATORS SLEEP SCREEN OUTPATIENT SLEEP STUDIES OUTPATIENT PFTS FURTHER W/U PER CARDIOLOGY LOW DOSE CHEST CT OUTPATIENT FOR LUNG CANCER SCREENING DR LANE Problem List - Problems (1) COPD (chronic obstructive pulmonary disease) Code(s): J44.9 - CHRONIC OBSTRUCTIVE PULMONARY DISEASE, UNSPECIFIED (2) Chest pain Code(s): R07.9 - CHEST PAIN, UNSPECIFIED Qualifiers: Chest pain type: unspecified Qualified Code(s): R07.9 - Chest pain, unspecified (3) Pulmonary HTN Code(s): I27.20 - PULMONARY HYPERTENSION, UNSPECIFIED
[2019-04-20] MEDS ORDERED: ALBUTEROL SO4 0.083% IH SOL 2.5 MG/3 ML VIAL.NEB. NEB PRN (14:40)
--- NOTE | 2019-04-20 16:57 | CONS ---
DATE OF CONSULTATION: 04/20/2019 DATE OF DICTATION: 04/20/2019 PULMONARY CONSULTATION REFERRING PHYSICIAN: Claudette Cobian M.D. HISTORY OF PRESENT ILLNESS: The patient is a 73-year-old white female with a past medical history of hypertension, hyperlipidemia, COPD, diabetes, hypothyroidism, longstanding history of tobacco use approximately 2 packs a day since teenage years, quit 8 years ago, admitted to [facility] with 2-week history of chest discomfort. Patient also noted she had facial flushing which resolved without any intervention. She described the pain as sharp, similar to heartburn and located in the middle of the chest without radiation. Denies any nausea, vomiting, diaphoresis associated with this. Patient was admitted with the above. On admission, she underwent an echo which revealed evidence of normal LV function and right ventricular systolic pressure of 30 to 40 mmHg. Patient complains of dyspnea on exertion while working up inclines, not on a level ground. Denies any hemoptysis, denies any chronic cough or bronchospasm. She states that she sleeps on 3 pillows, denies any PND. Apparently she snores and has excessive daytime sleepiness. She has never a formal sleep study as an outpatient. She denies any history of occupational exposures to chemicals or fumes. PAST MEDICAL HISTORY: Again includes hyperlipidemia, hypertension, diabetes, COPD, hypothyroidism. REVIEW OF SYSTEMS: Positive orthopnea. Positive chest pain. No nausea. No vomiting. No hemoptysis. No abdominal pain. No lower extremity edema. CURRENT MEDICATIONS: Include _albuterol, Toprol, Lipitor, NovoLog, Singulair, Imdur, Nitrostat, aspirin, Protonix, and Synthroid. PHYSICAL EXAMINATION: General: The patient is a female, well-developed, well-nourished, awake, alert , in no acute distress. Vital Signs: She is afebrile. Heart rate is 72. Blood pressure 140/70. O2 saturation 97% on room air. HEENT: Normocephalic, atraumatic. Neck: Supple. Heart: Regular S1, S2. Chest: Clear. Abdomen: Soft, bowel sounds positive. Extremities: No cyanosis, edema. LABORATORY: WBC 6.7, hemoglobin 13.8, hematocrit 41.0, platelet count 187,000. Chemistries: BUN 10, creatinine 0.8, troponin 0.02, TSH is 3.94. Chest x-ray: No infiltrates, no effusions. IMPRESSION: 1. Chest pain syndrome ,r/o Cardiac etiology. 2. Chronic obstructive pulmonary disease. Currently not in acute exacerbation. 3. Hypertension. 4. Hypothyroidism. 5. Diabetes. 6. Pulmonary hypertension. 7. Likely obstructive sleep apnea. PLAN: Continue current workup as per cardiology. Cardiac enzymes. Supplemental O2. Inhaled bronchodilators. Obtain sleep screen. Also outpatient sleep studies. Outpatient PFTs. A low-dose Chest CT scan as an outpatient for lung cancer screening. KWAME LANE M.D. [id number] MTDRobbie
[2019-04-20] MEDS ORDERED: INSULIN (NOVOLOG) ASPART 100 UNITS/ML 10ML VIAL ONE (21:26)
[2019-04-20] MEDS: MONTELUKAST NA 10 MG TABLET PO SCH (21:42)
[2019-04-20] MEDS: ATORVASTATIN CA 80 MG TABLET (FP) PO SCH (21:42)
[2019-04-21] MEDS: LEVOTHYROXINE NA 25 MCG TABLET (FP) PO SCH (06:19)
[2019-04-21] MEDS: INSULIN SLIDING SCALE (NOVOLOG) 1 VIAL SQ SCH ×3 (06:20→22:00)
[2019-04-21] MEDS: metoPROLOL SUCCINATE 25 MG TAB.SR.24H (FP) PO SCH (11:02)
[2019-04-21] MEDS: ASPIRIN 81 MG CHEWABLE TABLETS PO SCH (11:02)
[2019-04-21] MEDS: PANTOPRAZOLE 40 MG TABLET (FP) PO SCH ×2 (11:02→21:29)
[2019-04-21] MEDS: ISOSORBIDE MONONITRATE 30 MG TAB.SR.24H (FP) PO SCH (11:02)
--- NOTE | 2019-04-21 11:02 | PN ---
Progress Note, Physician Chief Complaint: AWAKE COMFORTABLE TODAY NO FEVER/CHILLS - Current Medication List Current Medications: Active Medications Albuterol Sulfate (Ventolin 0.083% Nebulizer Soln -) 1 amp NEB Q4H PRN PRN Reason: SHORT OF BREATH/WHEEZING Aspirin (Asa -) 81 mg PO DAILY [facility] Last Admin: 04/20/19 10:33 Dose: 81 mg Atorvastatin Calcium (Lipitor -) 80 mg PO HS [facility] Last Admin: 04/20/19 21:42 Dose: 80 mg Insulin Aspart (Novolog Vial Sliding Scale -) 1 vial SQ ACHS [facility]; Protocol Last Admin: 04/21/19 06:20 Dose: 2 units Isosorbide Mononitrate (Imdur -) 30 mg PO DAILY [facility] Last Admin: 04/20/19 10:34 Dose: 30 mg Levothyroxine Sodium (Synthroid -) 25 mcg PO AM [facility] Last Admin: 04/21/19 06:19 Dose: 25 mcg Metoprolol Succinate (Toprol Xl -) 25 mg PO DAILY [facility] Last Admin: 04/20/19 10:34 Dose: 25 mg Montelukast Sodium (Singulair -) 10 mg PO HS [facility] Last Admin: 04/20/19 21:42 Dose: 10 mg Nitroglycerin (Nitrostat -) 0.4 mg SL Q5M PRN PRN Reason: CHEST PAIN Pantoprazole Sodium (Protonix -) 40 mg PO BID [facility] Last Admin: 04/20/19 21:42 Dose: 40 mg Umeclidinium/Vilanterol (Anoro Ellipta 62.5-25 Mcg Inh) 1 puff IH DAILY [facility] Last Admin: 04/20/19 11:08 Dose: 1 puff - Objective Vital Signs: Vital Signs Temperature 98.4 F 04/21/19 06:00 Pulse Rate 77 04/21/19 06:00 Respiratory Rate 18 04/21/19 06:00 Blood Pressure 103/67 04/21/19 06:00 O2 Sat by Pulse Oximetry (%) 96 04/21/19 04:00 Constitutional: Yes: Mild Distress Cardiovascular: Yes: WNL Respiratory: Yes: Diminished Gastrointestinal: Yes: Soft, Abdomen, Obese Musculoskeletal: Yes: Muscle Weakness Edema: Yes Edema: LLE: 1+, RLE: 1+ Peripheral Pulses WNL: Yes Neurological: Yes: WNL Psychiatric: Yes: WNL Labs: CBC, BMP 04/20/19 07:00 04/20/19 13:00 INR, PTT INR 0.99 (0.83-1.09) 04/19/19 16:07 Problem List - Problems (1) COPD (chronic obstructive pulmonary disease) Code(s): J44.9 - CHRONIC OBSTRUCTIVE PULMONARY DISEASE, UNSPECIFIED (2) Dyspnea Code(s): R06.00 - DYSPNEA, UNSPECIFIED (3) Chest pain Code(s): R07.9 - CHEST PAIN, UNSPECIFIED Qualifiers: Chest pain type: unspecified Qualified Code(s): R07.9 - Chest pain, unspecified Assessment/Plan ECHO DONE NO ACUTE CHANGES CARDIO/PULM EVAL APPRECIATED COPD? NEED NEBS STRESS TEST TUESDAY PPI STARTED DVT PROPHYLAXIS
[2019-04-21] MEDS: UMECLIDINIUM/VILANTEROL (ANORO) 62.5/25 MCG INHALER IH SCH (11:03)
--- NOTE | 2019-04-21 11:47 | PN ---
Progress Note, Physician Chief Complaint: chest pain History of Present Illness: Patient is a 73 year old female with history of hypertension, hyperlipidemia, COPD, asthma, diabetes mellitus, hypothyroidism, presents with complaint of chest pain. She endorses symptoms began approx. two weeks ago while she was walking. Symptoms were associated with facial flushing that lasted several hours before spontaneously resolving without any intervention. Pain described as sharp (similar to heartburn), localized to middle of her chest, without radiation rated 5/10 intensity. She endorses recent physical activity limitation as the chest pain occurs with walking or going up stairs. She states the chest pain is intermittent. Last ECHO 09.26 reveals ejetion fraction 62% with left ventricular hypertrophy Last stress test 06/2017 revealed subtle inferolateral septal defect. - Current Medication List Current Medications: Active Medications Albuterol Sulfate (Ventolin 0.083% Nebulizer Soln -) 1 amp NEB Q4H PRN PRN Reason: SHORT OF BREATH/WHEEZING Aspirin (Asa -) 81 mg PO DAILY [facility] Last Admin: 04/21/19 11:02 Dose: 81 mg Atorvastatin Calcium (Lipitor -) 80 mg PO HS [facility] Last Admin: 04/20/19 21:42 Dose: 80 mg Insulin Aspart (Novolog Vial Sliding Scale -) 1 vial SQ ACHS [facility]; Protocol Last Admin: 04/21/19 06:20 Dose: 2 units Isosorbide Mononitrate (Imdur -) 30 mg PO DAILY [facility] Last Admin: 04/21/19 11:02 Dose: 30 mg Levothyroxine Sodium (Synthroid -) 25 mcg PO AM [facility] Last Admin: 04/21/19 06:19 Dose: 25 mcg Metoprolol Succinate (Toprol Xl -) 25 mg PO DAILY [facility] Last Admin: 04/21/19 11:02 Dose: 25 mg Montelukast Sodium (Singulair -) 10 mg PO HS [facility] Last Admin: 04/20/19 21:42 Dose: 10 mg Nitroglycerin (Nitrostat -) 0.4 mg SL Q5M PRN PRN Reason: CHEST PAIN Pantoprazole Sodium (Protonix -) 40 mg PO BID [facility] Last Admin: 04/21/19 11:02 Dose: 40 mg Umeclidinium/Vilanterol (Anoro Ellipta 62.5-25 Mcg Inh) 1 puff IH DAILY [facility] Last Admin: 04/21/19 11:03 Dose: 1 puff - Objective Vital Signs: Vital Signs Temperature 98.4 F 04/21/19 06:00 Pulse Rate 77 04/21/19 06:00 Respiratory Rate 18 04/21/19 06:00 Blood Pressure 103/67 04/21/19 06:00 O2 Sat by Pulse Oximetry (%) 96 04/21/19 04:00 Constitutional: Yes: Well Nourished, No Distress, Calm Eyes: Yes: WNL, Conjunctiva Clear, EOM Intact HENT: Yes: WNL, Atraumatic, Normocephalic Neck: Yes: WNL, Supple, Trachea Midline Cardiovascular: Yes: WNL, Regular Rate and Rhythm, S1, S2 Respiratory: Yes: WNL, Regular, CTA Bilaterally Gastrointestinal: Yes: WNL, Normal Bowel Sounds, Soft ...Rectal Exam: Yes: Deferred Musculoskeletal: Yes: WNL Extremities: Yes: WNL Edema: No Peripheral Pulses: Left Radial: 1+, Right Radial: 1+, Left Doralis Pedis: 1+, Right Dorsalis Pedis: 1+, Left Femoral: 1+, Right Femoral: 1+ Integumentary: Yes: WNL Neurological: Yes: WNL, Alert, Oriented ...Motor Strength: WNL Psychiatric: Yes: WNL Labs: CBC, BMP 04/20/19 07:00 04/20/19 13:00 INR, PTT INR 0.99 (0.83-1.09) 04/19/19 16:07 Assessment/Plan Patient is a 73 year old female with history of hypertension, hyperlipidemia, COPD, asthma, diabetes mellitus, hypothyroidism, presents with complaint of chest pain. She endorses symptoms began approx. two weeks ago while she was walking. Symptoms were associated with facial flushing that lasted several hours before spontaneously resolving without any intervention. Pain described as sharp (similar to heartburn), localized to middle of her chest, without radiation rated 5/10 intensity. She endorses recent physical activity limitation as the chest pain occurs with walking or going up stairs. She states the chest pain is intermittent. Last ECHO 09.26 reveals ejetion fraction 62% with left ventricular hypertrophy Last stress test 06/2017 revealed subtle inferolateral septal defect. the patient remains quite stable from the cardiac standpoint.No further chest pains. Please continue current regimen. waiting for the stress test on Tuesday. cardiac stable.
--- NOTE | 2019-04-21 14:03 | PN ---
Progress Note (short form) - Note Progress Note: Feels better today. No SOB. CP improving. Afebrile. Intake & Output 04/18/19 04/19/19 04/20/19 04/21/19 23:59 23:59 23:59 23:59 Intake Total 650 250 Balance 650 250 Weight 180 lb 180 lb Last Vital Signs Temp Pulse Resp BP Pulse Ox 98.4 F 77 18 103/67 96 04/21/19 06:00 04/21/19 06:00 04/21/19 06:00 04/21/19 06:00 04/21/19 04:00 Active Medications Albuterol Sulfate (Ventolin 0.083% Nebulizer Soln -) 1 amp NEB Q4H PRN PRN Reason: SHORT OF BREATH/WHEEZING Aspirin (Asa -) 81 mg PO DAILY [facility] Last Admin: 04/21/19 11:02 Dose: 81 mg Atorvastatin Calcium (Lipitor -) 80 mg PO [facility] Last Admin: 04/20/19 21:42 Dose: 80 mg Insulin Aspart (Novolog Vial Sliding Scale -) 1 vial SQ [facility]; Protocol Last Admin: 04/21/19 06:20 Dose: 2 units Isosorbide Mononitrate (Imdur -) 30 mg PO DAILY [facility] Last Admin: 04/21/19 11:02 Dose: 30 mg Levothyroxine Sodium (Synthroid -) 25 mcg PO AM [facility] Last Admin: 04/21/19 06:19 Dose: 25 mcg Metoprolol Succinate (Toprol Xl -) 25 mg PO DAILY [facility] Last Admin: 04/21/19 11:02 Dose: 25 mg Montelukast Sodium (Singulair -) 10 mg PO HS [facility] Last Admin: 04/20/19 21:42 Dose: 10 mg Nitroglycerin (Nitrostat -) 0.4 mg SL Q5M PRN PRN Reason: CHEST PAIN Pantoprazole Sodium (Protonix -) 40 mg PO BID [facility] Last Admin: 04/21/19 11:02 Dose: 40 mg Umeclidinium/Vilanterol (Anoro Ellipta 62.5-25 Mcg Inh) 1 puff IH DAILY [facility] Last Admin: 04/21/19 11:03 Dose: 1 puff Constitutional: Yes: NAD Cardiovascular: Yes: WNL Respiratory: Yes: Diminished at the bases, no wheeze Gastrointestinal: Yes: Soft, Abdomen, Obese Edema: Yes Edema: LLE: 1+, RLE: 1+ Peripheral Pulses WNL: Yes Neurological: Yes: WNL Psychiatric: Yes: WNL Labs: Laboratory Results - last 24 hr 04/20/19 04/21/19 20:50 06:14 POC Glucometer 241 [id number] Problem List - Problems (1) COPD (chronic obstructive pulmonary disease) Code(s): J44.9 - CHRONIC OBSTRUCTIVE PULMONARY DISEASE, UNSPECIFIED (2) Chest pain Code(s): R07.9 - CHEST PAIN, UNSPECIFIED Qualifiers: Chest pain type: unspecified Qualified Code(s): R07.9 - Chest pain, unspecified (3) Pulmonary HTN Code(s): I27.20 - PULMONARY HYPERTENSION, UNSPECIFIED IMP CHEST PAIN SYNDROME COPD HTN HYPOTHYROID DM PULMONARY HTN LIKELY OSAS PLAN CARDIAC WORKUP PER CARDIOLOGY O2 NEEDED INHALED BRONCHODILATORS SLEEP SCREEN OUTPATIENT SLEEP STUDIES OUTPATIENT PFTS LOW DOSE CHEST CT OUTPATIENT FOR LUNG CANCER SCREENING NO SMOKING COUNSELED DR DAVIES
[2019-04-21] MEDS: MONTELUKAST NA 10 MG TABLET PO SCH (21:29)
[2019-04-21] MEDS: ATORVASTATIN CA 80 MG TABLET (FP) PO SCH (21:29)
[2019-04-22] MEDS: INSULIN SLIDING SCALE (NOVOLOG) 1 VIAL SQ SCH ×4 (06:13→22:47)
[2019-04-22] MEDS: LEVOTHYROXINE NA 25 MCG TABLET (FP) PO SCH (06:14)
[2019-04-22 07:18] LABS: CHOLESTEROL 148 mg/dL (50-200); HDL CHOLESTEROL 46 mg/dL (40-60); TRIGLYCERIDES 131 mg/dL (0-150)
[2019-04-22] MEDS: ASPIRIN 81 MG CHEWABLE TABLETS PO SCH (09:42)
[2019-04-22] MEDS: PANTOPRAZOLE 40 MG TABLET (FP) PO SCH ×2 (09:42→21:21)
[2019-04-22] MEDS: ISOSORBIDE MONONITRATE 30 MG TAB.SR.24H (FP) PO SCH (09:42)
[2019-04-22] MEDS: metoPROLOL SUCCINATE 25 MG TAB.SR.24H (FP) PO SCH (09:42)
[2019-04-22] MEDS: UMECLIDINIUM/VILANTEROL (ANORO) 62.5/25 MCG INHALER IH SCH (12:43)
--- NOTE | 2019-04-22 13:19 | PN ---
Progress Note, Physician Chief Complaint: COPD DM2 Pulmonary HTN Chest pain History of Present Illness: NAD Awaiting stress test on Tuesday - Current Medication List Current Medications: Active Medications Albuterol Sulfate (Ventolin 0.083% Nebulizer Soln -) 1 amp NEB Q4H PRN PRN Reason: SHORT OF BREATH/WHEEZING Aspirin (Asa -) 81 mg PO DAILY [facility] Last Admin: 04/22/19 09:42 Dose: 81 mg Atorvastatin Calcium (Lipitor -) 80 mg PO HS [facility] Last Admin: 04/21/19 21:29 Dose: 80 mg Insulin Aspart (Novolog Vial Sliding Scale -) 1 vial SQ ACHS [facility]; Protocol Last Admin: 04/22/19 12:43 Dose: 2 units Isosorbide Mononitrate (Imdur -) 30 mg PO DAILY [facility] Last Admin: 04/22/19 09:42 Dose: 30 mg Levothyroxine Sodium (Synthroid -) 25 mcg PO AM [facility] Last Admin: 04/22/19 06:14 Dose: 25 mcg Metoprolol Succinate (Toprol Xl -) 25 mg PO DAILY [facility] Last Admin: 04/22/19 09:42 Dose: 25 mg Montelukast Sodium (Singulair -) 10 mg PO HS [facility] Last Admin: 04/21/19 21:29 Dose: 10 mg Nitroglycerin (Nitrostat -) 0.4 mg SL Q5M PRN PRN Reason: CHEST PAIN Pantoprazole Sodium (Protonix -) 40 mg PO BID [facility] Last Admin: 04/22/19 09:42 Dose: 40 mg Umeclidinium/Vilanterol (Anoro Ellipta 62.5-25 Mcg Inh) 1 puff IH DAILY [facility] Last Admin: 04/22/19 12:43 Dose: 1 puff - Objective Vital Signs: Vital Signs Temperature 98 F 04/22/19 05:37 Pulse Rate 72 04/22/19 05:37 Respiratory Rate 18 04/22/19 09:45 Blood Pressure 122/59 L 04/22/19 05:37 O2 Sat by Pulse Oximetry (%) 98 04/22/19 09:45 Constitutional: Yes: Well Nourished, No Distress, Calm Cardiovascular: Yes: Regular Rate and Rhythm Respiratory: Yes: Regular, On Nasal O2 Genitourinary: Yes: WNL Musculoskeletal: Yes: WNL Extremities: Yes: WNL Edema: No Peripheral Pulses WNL: Yes Neurological: Yes: Alert, Oriented Psychiatric: Yes: Alert, Oriented Labs: CBC, BMP 04/20/19 07:00 04/20/19 13:00 INR, PTT INR 0.99 (0.83-1.09) 04/19/19 16:07 Problem List - Problems (1) Diabetes mellitus Assessment/Plan: -BGM AC HS -Diabetic/low sodium diet -ISS -Check A1c Code(s): E11.9 - TYPE 2 DIABETES MELLITUS WITHOUT COMPLICATIONS (2) Chest pain Assessment/Plan: -Seen by cardiology -Trops negative -Echo normal -Tele monitoring- no events noted -Awaiting stress test in AM Code(s): R07.9 - CHEST PAIN, UNSPECIFIED Qualifiers: Chest pain type: unspecified Qualified Code(s): R07.9 - Chest pain, unspecified (3) COPD (chronic obstructive pulmonary disease) Assessment/Plan: -Seen by pulmonary -Bronchodilators -Nasal O2 PRN to keep SpO>90% -Anoro inh -Montelukast 10 m g PO HS Code(s): J44.9 - CHRONIC OBSTRUCTIVE PULMONARY DISEASE, UNSPECIFIED (4) Pulmonary HTN Code(s): I27.20 - PULMONARY HYPERTENSION, UNSPECIFIED Assessment/Plan see problem list
--- NOTE | 2019-04-22 15:00 | PN ---
Progress Note (short form) - Note Progress Note: Feels better. No SOB. No CP. Afebrile. Intake & Output 04/18/19 04/19/19 04/20/19 04/21/19 23:59 23:59 23:59 23:59 Intake Total 650 250 Balance 650 250 Weight 180 lb 180 lb Last Vital Signs Temp Pulse Resp BP Pulse Ox 98.4 F 77 18 103/67 96 04/21/19 06:00 04/21/19 06:00 04/21/19 06:00 04/21/19 06:00 04/21/19 04:00 Active Medications Albuterol Sulfate (Ventolin 0.083% Nebulizer Soln -) 1 amp NEB Q4H PRN PRN Reason: SHORT OF BREATH/WHEEZING Aspirin (Asa -) 81 mg PO DAILY [facility] Last Admin: 04/21/19 11:02 Dose: 81 mg Atorvastatin Calcium (Lipitor -) 80 mg PO [facility] Last Admin: 04/20/19 21:42 Dose: 80 mg Insulin Aspart (Novolog Vial Sliding Scale -) 1 vial SQ [facility]; Protocol Last Admin: 04/21/19 06:20 Dose: 2 units Isosorbide Mononitrate (Imdur -) 30 mg PO DAILY [facility] Last Admin: 04/21/19 11:02 Dose: 30 mg Levothyroxine Sodium (Synthroid -) 25 mcg PO AM [facility] Last Admin: 04/21/19 06:19 Dose: 25 mcg Metoprolol Succinate (Toprol Xl -) 25 mg PO DAILY [facility] Last Admin: 04/21/19 11:02 Dose: 25 mg Montelukast Sodium (Singulair -) 10 mg PO HS [facility] Last Admin: 04/20/19 21:42 Dose: 10 mg Nitroglycerin (Nitrostat -) 0.4 mg SL Q5M PRN PRN Reason: CHEST PAIN Pantoprazole Sodium (Protonix -) 40 mg PO BID [facility] Last Admin: 04/21/19 11:02 Dose: 40 mg Umeclidinium/Vilanterol (Anoro Ellipta 62.5-25 Mcg Inh) 1 puff IH DAILY [facility] Last Admin: 04/21/19 11:03 Dose: 1 puff Constitutional: Yes: NAD Cardiovascular: Yes: WNL Respiratory: Yes: Diminished at the bases, no wheeze Gastrointestinal: Yes: Soft, Abdomen, Obese Edema: Yes Edema: LLE: 1+, RLE: 1+ Peripheral Pulses WNL: Yes Neurological: Yes: WNL Psychiatric: Yes: WNL Labs: Laboratory Results - last 24 hr 04/20/19 04/21/19 20:50 06:14 POC Glucometer 241 199 Problem List - Problems (1) COPD (chronic obstructive pulmonary disease) Code(s): J44.9 - CHRONIC OBSTRUCTIVE PULMONARY DISEASE, UNSPECIFIED (2) Chest pain Code(s): R07.9 - CHEST PAIN, UNSPECIFIED Qualifiers: Chest pain type: unspecified Qualified Code(s): R07.9 - Chest pain, unspecified (3) Pulmonary HTN Code(s): I27.20 - PULMONARY HYPERTENSION, UNSPECIFIED IMP CHEST PAIN SYNDROME COPD HTN HYPOTHYROID DM PULMONARY HTN LIKELY OSAS PLAN CARDIAC WORKUP PER CARDIOLOGY O2 NEEDED INHALED BRONCHODILATORS SLEEP SCREEN OUTPATIENT SLEEP STUDIES OUTPATIENT PFTS LOW DOSE CHEST CT OUTPATIENT FOR LUNG CANCER SCREENING NO SMOKING COUNSELED DR DAVIES
[2019-04-22] MEDS: MONTELUKAST NA 10 MG TABLET PO SCH (21:21)
[2019-04-22] MEDS: ATORVASTATIN CA 80 MG TABLET (FP) PO SCH (21:21)
[2019-04-23] MEDS: LEVOTHYROXINE NA 25 MCG TABLET (FP) PO SCH (06:14)
[2019-04-23] MEDS: INSULIN SLIDING SCALE (NOVOLOG) 1 VIAL SQ SCH ×2 (06:14→11:42)
[2019-04-23 06:52] LABS: BASO % 1.1 % (0-2.0); EOS % 6.4 % (0-4.5); HEMATOCRIT 42.2 % (32.4-45.2); HEMOGLOBIN 14.3 GM/dL (10.7-15.3); LYMPH % 26.5 % (8-40); MCH 30.3 pg (25.7-33.7); MEAN CELL VOLUME 89.1 fl (80-96); MEAN PLT VOLUME 9.5 fl (7.5-11.1); MONO % 7.4 % (3.8-10.2); NEUT % 58.6 % (42.8-82.8); PLATELET COUNT 205 K/MM3 (134-434); RBC 4.73 M/mm3 (3.60-5.2); RDW 13.5 % (11.6-15.6)
[2019-04-23 07:24] LABS: ALBUMIN 3.6 g/dl (3.4-5.0); ALK PHOS 90 U/L (45-117); ANION GAP 10 MMOL/L (8-16); BILIRUBIN,TOTAL 0.6 mg/dL (0.2-1); BLOOD UREA NITROGEN 15.3 mg/dL (7-18); CALCIUM 9.2 mg/dL (8.5-10.1); CHLORIDE 103 mmol/L (98-107); CO2 25 mmol/L (21-32); GLUCOSE,RANDOM 203 mg/dL (74-106); POTASSIUM 4.5 mmol/L (3.5-5.1); SGOT/AST 35 U/L (15-37); SGPT/ALT 57 U/L (13-61); SODIUM 138 mmol/L (136-145)
[2019-04-23] MEDS ORDERED: REGADENOSON 0.4 MG/5 ML PRE-FILLED SYRINGE IVPUSH ONE ×2 (09:53→10:30)
[2019-04-23] MEDS: ISOSORBIDE MONONITRATE 30 MG TAB.SR.24H (FP) PO SCH (11:43)
[2019-04-23] MEDS: ASPIRIN 81 MG CHEWABLE TABLETS PO SCH (11:43)
[2019-04-23] MEDS: PANTOPRAZOLE 40 MG TABLET (FP) PO SCH (11:43)
[2019-04-23] MEDS: metoPROLOL SUCCINATE 25 MG TAB.SR.24H (FP) PO SCH (11:43)
--- NOTE | 2019-04-23 11:43 | PN ---
Progress Note, Physician History of Present Illness: pulmonary alert,comfortable,-resp distress. sleep screen AHI 49.4 - Current Medication List Current Medications: Active Medications Albuterol Sulfate (Ventolin 0.083% Nebulizer Soln -) 1 amp NEB Q4H PRN PRN Reason: SHORT OF BREATH/WHEEZING Aspirin (Asa -) 81 mg PO DAILY [facility] Last Admin: 04/22/19 09:42 Dose: 81 mg Atorvastatin Calcium (Lipitor -) 80 mg PO HS [facility] Last Admin: 04/22/19 21:21 Dose: 80 mg Insulin Aspart (Novolog Vial Sliding Scale -) 1 vial SQ ACHS [facility]; Protocol Last Admin: 04/23/19 06:14 Dose: Not Given Isosorbide Mononitrate (Imdur -) 30 mg PO DAILY [facility] Last Admin: 04/22/19 09:42 Dose: 30 mg Levothyroxine Sodium (Synthroid -) 25 mcg PO AM [facility] Last Admin: 04/23/19 06:14 Dose: Not Given Metoprolol Succinate (Toprol Xl -) 25 mg PO DAILY [facility] Last Admin: 04/22/19 09:42 Dose: 25 mg Montelukast Sodium (Singulair -) 10 mg PO HS [facility] Last Admin: 04/22/19 21:21 Dose: 10 mg Nitroglycerin (Nitrostat -) 0.4 mg SL Q5M PRN PRN Reason: CHEST PAIN Pantoprazole Sodium (Protonix -) 40 mg PO BID [facility] Last Admin: 04/22/19 21:21 Dose: 40 mg Umeclidinium/Vilanterol (Anoro Ellipta 62.5-25 Mcg Inh) 1 puff IH DAILY [facility] Last Admin: 04/22/19 12:43 Dose: 1 puff - Objective Vital Signs: Vital Signs Temperature 98 F 04/23/19 07:51 Pulse Rate 80 04/23/19 07:51 Respiratory Rate 18 04/23/19 07:51 Blood Pressure 138/80 04/23/19 07:51 O2 Sat by Pulse Oximetry (%) 94 L 04/23/19 04:56 Constitutional: Yes: Well Nourished, Calm Eyes: Yes: WNL HENT: Yes: WNL Neck: Yes: WNL Cardiovascular: Yes: Regular Rate and Rhythm, S1, S2 Respiratory: Yes: Diminished Gastrointestinal: Yes: Normal Bowel Sounds, Soft Extremities: Yes: WNL Edema: No Labs: CBC, BMP 04/23/19 05:40 04/23/19 05:40 INR, PTT INR 0.99 (0.83-1.09) 04/19/19 16:07 Problem List - Problems (1) COPD (chronic obstructive pulmonary disease) Code(s): J44.9 - CHRONIC OBSTRUCTIVE PULMONARY DISEASE, UNSPECIFIED (2) Chest pain Code(s): R07.9 - CHEST PAIN, UNSPECIFIED Qualifiers: Chest pain type: unspecified Qualified Code(s): R07.9 - Chest pain, unspecified (3) Pulmonary HTN Code(s): I27.20 - PULMONARY HYPERTENSION, UNSPECIFIED Assessment/Plan IMP CHEST PAIN SYNDROME COPD HTN HYPOTHYROID DM PULMONARY HTN OSAS AHI 49.4 ON SLEEP SCREEN PLAN O2 INHALED BRONCHODILATORS SLEEP SCREEN OUTPATIENT SLEEP STUDIES OUTPATIENT PFTS LOW DOSE CHEST CT OUTPATIENT FOR LUNG CANCER SCREENING DR LANE Problem List - Problems (1) COPD (chronic obstructive pulmonary disease) Code(s): J44.9 - CHRONIC OBSTRUCTIVE PULMONARY DISEASE, UNSPECIFIED (2) Chest pain Code(s): R07.9 - CHEST PAIN, UNSPECIFIED Qualifiers: Chest pain type: unspecified Qualified Code(s): R07.9 - Chest pain, unspecified (3) Pulmonary HTN Code(s): I27.20 - PULMONARY HYPERTENSION, UNSPECIFIED
[2019-04-23] MEDS: UMECLIDINIUM/VILANTEROL (ANORO) 62.5/25 MCG INHALER IH SCH (11:46)
[2019-04-23] MEDS ORDERED: LEVOTHYROXINE NA 25 MCG TABLET (FP) PO SCH (12:33)
--- NOTE | 2019-04-23 12:33 | PN ---
Progress Note, Physician Chief Complaint: patient just got back from stress test - Current Medication List Current Medications: Active Medications Albuterol Sulfate (Ventolin 0.083% Nebulizer Soln -) 1 amp NEB Q4H PRN PRN Reason: SHORT OF BREATH/WHEEZING Aspirin (Asa -) 81 mg PO DAILY [facility] Last Admin: 04/23/19 11:43 Dose: 81 mg Atorvastatin Calcium (Lipitor -) 80 mg PO HS [facility] Last Admin: 04/22/19 21:21 Dose: 80 mg Insulin Aspart (Novolog Vial Sliding Scale -) 1 vial SQ ACHS [facility]; Protocol Last Admin: 04/23/19 11:42 Dose: 2 units Isosorbide Mononitrate (Imdur -) 30 mg PO DAILY [facility] Last Admin: 04/23/19 11:43 Dose: 30 mg Levothyroxine Sodium (Synthroid -) 25 mcg PO AM [facility] Last Admin: 04/23/19 06:14 Dose: Not Given Metoprolol Succinate (Toprol Xl -) 25 mg PO DAILY [facility] Last Admin: 04/23/19 11:43 Dose: 25 mg Montelukast Sodium (Singulair -) 10 mg PO HS [facility] Last Admin: 04/22/19 21:21 Dose: 10 mg Nitroglycerin (Nitrostat -) 0.4 mg SL Q5M PRN PRN Reason: CHEST PAIN Pantoprazole Sodium (Protonix -) 40 mg PO BID [facility] Last Admin: 04/23/19 11:43 Dose: 40 mg Umeclidinium/Vilanterol (Anoro Ellipta 62.5-25 Mcg Inh) 1 puff IH DAILY [facility] Last Admin: 04/23/19 11:46 Dose: 1 puff - Objective Vital Signs: Vital Signs Temperature 98 F 04/23/19 07:51 Pulse Rate 80 04/23/19 07:51 Respiratory Rate 18 04/23/19 07:51 Blood Pressure 138/80 04/23/19 07:51 O2 Sat by Pulse Oximetry (%) 94 L 04/23/19 04:56 Constitutional: Yes: Calm Cardiovascular: Yes: Regular Rate and Rhythm, S1, S2 Respiratory: Yes: CTA Bilaterally Gastrointestinal: Yes: Normal Bowel Sounds, Soft Edema: No Neurological: Yes: Alert, Oriented Labs: CBC, BMP 04/23/19 05:40 04/23/19 05:40 INR, PTT INR 0.99 (0.83-1.09) 04/19/19 16:07 Problem List - Problems (1) Chest pain Assessment/Plan: stress test done awaiting report aspirin statin BB and imdur Code(s): R07.9 - CHEST PAIN, UNSPECIFIED Qualifiers: Chest pain type: unspecified Qualified Code(s): R07.9 - Chest pain, unspecified (2) Diabetes mellitus Assessment/Plan: hgba1c 7.8 levemir at night Code(s): E11.9 - TYPE 2 DIABETES MELLITUS WITHOUT COMPLICATIONS Qualifiers: Diabetes mellitus type: type 2 (3) Hypothyroid Assessment/Plan: tsh noted inc synthroid to 37.5mcg recheck tsh in 4 weeks Code(s): E03.9 - HYPOTHYROIDISM, UNSPECIFIED
--- NOTE | 2019-04-23 13:33 | DS ---
Physical Examination Vital Signs: Vital Signs Temperature 98 F 04/23/19 07:51 Pulse Rate 80 04/23/19 07:51 Respiratory Rate 18 04/23/19 07:51 Blood Pressure 138/80 04/23/19 07:51 O2 Sat by Pulse Oximetry (%) 94 L 04/23/19 04:56 Constitutional: Yes: Calm Cardiovascular: Yes: Regular Rate and Rhythm, S1, S2 Respiratory: Yes: CTA Bilaterally Gastrointestinal: Yes: Normal Bowel Sounds, Soft Edema: No Neurological: Yes: Alert, Oriented Labs: CBC, BMP 04/23/19 05:40 04/23/19 05:40 Discharge Summary Reason For Visit: CHEST PAIN Current Active Problems COPD (chronic obstructive pulmonary disease) (Acute) Chest pain (Acute) Diabetes mellitus (Acute) Dyspnea (Acute) Hypothyroid (Acute) Pulmonary HTN (Acute) Hospital Course: CHIEF COMPLAINT: chest pain PCP: Dr. Cobian HISTORY OF PRESENT ILLNESS: Patient is a 73 year old female with history of hypertension, hyperlipidemia, COPD, asthma, diabetes mellitus, hypothyroidism, presents with complaint of chest pain. She endorses symptoms began approx. two weeks ago while she was walking. Symptoms were associated with facial flushing that lasted several hours before spontaneously resolving without any intervention. Pain described as sharp (similar to heartburn), localized to middle of her chest, without radiation rated 5/10 intensity. She endorses recent physical activity limitation as the chest pain occurs with walking or going up stairs. She states the chest pain is intermittent. Last ECHO 09.26 reveals ejetion fraction 62% with left ventricular hypertrophy Last stress test 06/2017 revealed subtle inferolateral septal defect. ER course was notable for: (1) EKG reveals normal sinus rhythm without ischemic changes. admited telemetry had stress test normal, tsh noted synthroid dose adjusted Condition: Guarded - Instructions Diet, Activity, Other Instructions: recheck TSH IN 4 weeks Referrals: Claudette Cobian MD [Primary Care Provider] - Disposition: HOME - Home Medications Comprehensive Discharge Medication List: Ambulatory Orders Aspirin 81 mg PO DAILY 09/06/17 Ferrous Sulfate 325 mg PO TID 09/06/17 Insulin Glargine,Hum.rec.anlog [Lantus] 28 unit SQ HS 09/06/17 Lipase/Protease/Amylase [Lizz Lees 24,000 Units Capsule] 1 each PO BID 09/06/17 Metoprolol Succinate [Toprol Xl] 25 mg PO DAILY 09/06/17 Sitagliptin Phos/Metformin HCl [Janumet Xr 50-1,000 mg Tablet] 1 each PO DAILY 09/06/17 Albuterol Sulfate Inhaler - [Ventolin Hfa Inhaler -] 1 - 2 inh PO QID PRN Atorvastatin Calcium 80 mg PO DAILY 01/30/18 Gabapentin [Neurontin -] 100 mg PO DAILY 01/30/18 Gabapentin [Neurontin -] 900 mg PO HS 01/30/18 Levothyroxine Sodium [Levoxyl] 25 mcg PO DAILY 01/30/18 Omeprazole 40 mg PO DAILY 30 Days #30 capsule. MDD 30 01/30/18 Ranitidine HCl 300 mg PO HS 01/30/18 Umeclidinium Brm/Vilanterol Tr [Anoro Ellipta 62.5-25 Mcg INH] 2 each IH DAILY 01/30/18 Albuterol Sulfate Inhaler - [Ventolin Hfa Inhaler -] 2 inh PO Q4H 04/19/19 Insulin (Novolog) [Novolog] 2 units SQ AC 04/19/19 Insulin Detemir [Levemir Flextouch] 28 unit SQ DAILY 04/19/19 Isosorbide Mononitrate [Imdur -] 30 mg PO DAILY 04/19/19 Melatonin 10 mg PO HS 04/19/19 Metoclopramide HCl [Reglan] 5 mg PO HS 04/19/19 Montelukast Sodium [Singulair] 10 mg PO DAILY 04/19/19 Naproxen [Naprosyn] 500 mg PO BID 04/19/19 Pramipexole Dihydrochloride [Mirapex -] 0.125 mg PO HS 04/19/19
[2019-04-23 14:43] VITALS: BP 147/85; PULSE 96; TEMP 97.8
[2019-04-23] MEDS ORDERED: INSULIN (LEVEMIR) 100 UNITS/ML UNITS SQ SCH (22:00)
== END 2019-04-23 14:45 | disposition home or self-care (01) ==
LOC: JER 14:20 → JERBED 17:57 → J4W 04-20 15:46
PROVIDERS: ADMIT Family Medicine; ATTEND Family Medicine
PROC: 3E033GC Introduction of Other Therapeutic Substance into Peripheral Vein, Percutaneous Approach (ICD-10-PCS; principal; 2019-04-19)
PROC: 3E0337Z Introduction of Electrolytic and Water Balance Substance into Peripheral Vein, Percutaneous Approach (ICD-10-PCS; 2019-04-19)
PROC: 3E013VG Introduction of Insulin into Subcutaneous Tissue, Percutaneous Approach (ICD-10-PCS; 2019-04-19)
PROC: 3E013GC Introduction of Other Therapeutic Substance into Subcutaneous Tissue, Percutaneous Approach (ICD-10-PCS; 2019-04-19)
PROC: 3E0F7GC Introduction of Other Therapeutic Substance into Respiratory Tract, Via Natural or Artificial Opening (ICD-10-PCS; 2019-04-19)
DX: R07.89 Other chest pain (principal); I10 Essential (primary) hypertension; E78.5 Hyperlipidemia, unspecified; E11.9 Type 2 diabetes mellitus without complications; D50.9 Iron deficiency anemia, unspecified; I27.20 Pulmonary hypertension, unspecified; J44.9 Chronic obstructive pulmonary disease, unspecified; E03.9 Hypothyroidism, unspecified; R06.00 Dyspnea, unspecified; Z87.891 Personal history of nicotine dependence; Z88.0 Allergy status to penicillin; Z88.2 Allergy status to sulfonamides; Z88.5 Allergy status to narcotic agent; Z79.82 Long term (current) use of aspirin; Z79.4 Long term (current) use of insulin
CPT/HCPCS: 36415; 71045-TC-FY; 71046-TC-FY; 78452-TC; 80053; 80061; 82550; 82962; 83036; 83721; 83735; 83880; 84100; 84443; 84484; 85025; 85027; 85610; 85730; 93005; 93010; 93017; 93306-TC; 94640; 96372; 96374; 99284-25; A9502; G0378; J2785; J7030

== ENCOUNTER 2021-04-09 14:39 | Emergency (ER) | payer OTHER, MEDICARE ==
[2021-04-09 15:08] VITALS: BMI 29.0
[2021-04-09] MEDS ORDERED: ACETAMINOPHEN 1000 MG/100 ML VIAL (NON FORMULARY) IVPB ONE (15:50)
[2021-04-09] MEDS ORDERED: ACETAMINOPHEN INJECTION 100 ML IVPB ONE (16:15)
[2021-04-09] MEDS ORDERED: LACTATED RINGERS SOLUTION 1000 ML INFUS.BAG IV ONE (16:27)
[2021-04-09 16:33] LABS: BASO % 1.4 % (0-2.0); HEMOGLOBIN 13.4 GM/dL (10.7-15.3); LYMPH % 17.9 % (8-40); MCH 30.3 pg (25.7-33.7); MCHC 34.3 g/dl (32.0-36.0); MEAN CELL VOLUME 88.2 fl (80-96); MONO % 6.7 % (3.8-10.2); PLATELET COUNT 215 10^3/uL (134-434); RBC 4.43 M/mm3 (3.60-5.2); RDW 13.2 % (11.6-15.6)
[2021-04-09 16:48] LABS: INR 1.08 (0.83-1.09); PROTHROMBIN TIME (PATIENT) 13.3 SEC (9.7-13.0)
[2021-04-09 16:51] LABS: ACTIVATED PTT 29.1 SECONDS (25.2-36.5)
[2021-04-09 16:53] LABS: CHLORIDE 105 mmol/L (98-107); SODIUM 138 mmol/L (136-145)
[2021-04-09 16:57] LABS: ALBUMIN 3.5 g/dl (3.4-5.0); ANION GAP 8 MMOL/L (8-16); BLOOD UREA NITROGEN 9.2 mg/dL (7-18); CO2 25 mmol/L (21-32); GLUCOSE,RANDOM 124 mg/dL (74-106); MAGNESIUM 1.7 mg/dL (1.8-2.4)
[2021-04-09 17:00] LABS: CREATININE 0.9 mg/dL (0.55-1.3); SGOT/AST 31 U/L (15-37); SGPT/ALT 42 U/L (13-61)
[2021-04-09 17:02] LABS: BILIRUBIN,TOTAL 0.4 mg/dL (0.2-1); TOT PROT 7.1 g/dl (6.4-8.2)
[2021-04-09 17:03] LABS: ALK PHOS 85 U/L (45-117)
[2021-04-09] MEDS ORDERED: MAGNESIUM SULF 50% (8.12 MEQ/2 ML-1 GM VIAL) IVPB ONE (18:58)
[2021-04-09] MEDS ORDERED: MAGNESIUM 1GM/D5W - 1 GM/100 ML IVPB IVPB ONE (19:11)
[2021-04-09 20:44] VITALS: BP 154/73; PULSE 60; TEMP 97.6
== END 2021-04-09 21:19 | disposition home or self-care (01) ==
LOC: JER 14:39
PROC: 3E033GC Introduction of Other Therapeutic Substance into Peripheral Vein, Percutaneous Approach (ICD-10-PCS; principal; 2021-04-09)
DX: S13.4XXA Sprain of ligaments of cervical spine, initial encounter (principal); M54.5 Low back pain; V49.50XA Passenger injured in collision with unspecified motor vehicles in traffic accident, initial encounter
CPT/HCPCS: 36415; 71260-TC; 72125-TC; 72128-TC; 72131-TC; 74177-TC; 80053; 82550; 83735; 84484; 85025; 85610; 85730; 86850; 86900; 86901; 93005; 93010; 99285-25; J0131; Q9967

== ENCOUNTER 2021-10-04 18:07 | Inpatient (IN) | payer OTHER ==
[2021-10-04] MEDS ORDERED: ACETAMINOPHEN 1000 MG/100 ML BAG IVPB ONE (19:42)
[2021-10-04] MEDS ORDERED: MAG HYDROX/AL HYDROX/SIMETH 30 ML UNIT-DOSE CUP PO ONE (19:43)
[2021-10-04] MEDS ORDERED: FAMOTIDINE 20 MG TABLET PO ONE (19:43)
[2021-10-04 19:50] LABS: BASO % 0.8 % (0-2.0); HEMATOCRIT 39.6 % (32.4-45.2); LYMPH % 32.3 % (8-40); MCH 29.4 pg (25.7-33.7); MCHC 32.8 g/dl (32.0-36.0); MEAN CELL VOLUME 89.7 fl (80-96); MEAN PLT VOLUME 9.1 fl (7.5-11.1); MONO % 7.5 % (3.8-10.2); NEUT % 48.4 % (42.8-82.8); PLATELET COUNT 187 10^3/uL (134-434); RBC 4.41 M/mm3 (3.60-5.2); RDW 14.2 % (11.6-15.6); WHITE BLOOD COUNT 6.6 K/mm3 (4.0-10.0)
[2021-10-04 19:51] LABS: PH,URINE 5.5 (5.0-8.0); URINE APPEARANCE CLEAR; URINE BILIRUBIN NEGATIVE (NEGATIVE); URINE COLOR YELLOW; URINE GLUCOSE (UA) NEGATIVE (NEGATIVE); URINE KETONE NEGATIVE (NEGATIVE); URINE LEUK ESTERASE NEGATIVE (NEGATIVE); URINE NITRITE NEGATIVE (NEGATIVE); URINE PROTEIN NEGATIVE (NEGATIVE); URINE UROBILINOGEN 0.2 mg/dL (0.2-1.0)
[2021-10-04 19:57] LABS: INR 1.1 (0.83-1.09); PROTHROMBIN TIME (PATIENT) 12.7 SEC (9.7-13.0)
[2021-10-04] MEDS ORDERED: FAMOTIDINE 20 MG TABLET ONE (20:35)
[2021-10-04] MEDS ORDERED: ACETAMINOPHEN INJECTION 100 ML IVPB ONE (20:36)
[2021-10-04] MEDS ORDERED: MAG HYDROX/AL HYDROX/SIMETH 30 ML UNIT-DOSE CUP ONE (20:36)
[2021-10-04 20:44] LABS: BLOOD UREA NITROGEN 11.9 mg/dL (7-18); CALCIUM 9.1 mg/dL (8.5-10.1)
[2021-10-04 20:45] LABS: ALBUMIN 3.6 g/dl (3.4-5.0)
[2021-10-04 20:48] LABS: CREATININE 0.9 mg/dL (0.55-1.3)
[2021-10-04 20:49] LABS: BILIRUBIN,TOTAL 0.3 mg/dL (0.2-1); TOT PROT 6.9 g/dl (6.4-8.2)
[2021-10-05] MEDS ORDERED: ACETAMINOPHEN 1000 MG/100 ML BAG IVPB ONE (01:27)
[2021-10-05] MEDS: SODIUM CHLORIDE 1,000 ML IV SCH ×3 (01:40→20:46)
[2021-10-05] MEDS ORDERED: ALBUTEROL SO4 HFA INHALER IH PRN (02:45)
[2021-10-05 05:18] VITALS: BMI 27.5
[2021-10-05] MEDS: LEVOTHYROXINE NA 25 MCG TABLET (FP) PO SCH (06:07)
[2021-10-05] MEDS: PANTOPRAZOLE 40 MG TABLET PO SCH (06:07)
[2021-10-05 09:26] LABS: HEMATOCRIT 39.3 % (32.4-45.2); MCH 29.5 pg (25.7-33.7); MEAN CELL VOLUME 89.4 fl (80-96); PLATELET COUNT 173 10^3/uL (134-434); RDW 14.4 % (11.6-15.6); WHITE BLOOD COUNT 5.7 K/mm3 (4.0-10.0)
[2021-10-05] MEDS: metoPROLOL SUCCINATE 25 MG TAB.SR.24H (FP) PO SCH (09:53)
[2021-10-05] MEDS: GABAPENTIN 100 MG CAPSULE PO SCH (09:53)
[2021-10-05] MEDS: FERROUS SO4 325 MG TABLET (FP) PO SCH ×3 (09:53→17:56)
[2021-10-05 09:54] LABS: BLOOD UREA NITROGEN 11.2 mg/dL (7-18); CALCIUM 8.8 mg/dL (8.5-10.1)
[2021-10-05] MEDS: ASPIRIN 81 MG CHEWABLE TABLETS PO SCH (09:54)
[2021-10-05] MEDS: ISOSORBIDE MONONITRATE 30 MG TAB.SR.24H (FP) PO SCH (09:54)
[2021-10-05 09:58] LABS: CREATININE 0.8 mg/dL (0.55-1.3)
[2021-10-05] MEDS ORDERED: MONTELUKAST NA 10 MG TABLET PO SCH ×2 (10:00→22:00)
[2021-10-05] MEDS: INSULIN SLIDING SCALE (NOVOLOG) 1 VIAL SQ SCH (21:12)
[2021-10-05] MEDS ORDERED: PRAMIPEXOLE DIHYDROCHLORIDE 0.125 MG TABLET PO SCH (22:00)
[2021-10-05] MEDS ORDERED: ATORVASTATIN CA 80 MG TABLET (FP) PO SCH (22:00)
[2021-10-05] MEDS ORDERED: FAMOTIDINE 40 MG TABLET PO SCH (22:00)
[2021-10-06] MEDS: SODIUM CHLORIDE 1,000 ML IV SCH (05:51)
[2021-10-06] MEDS: LEVOTHYROXINE NA 25 MCG TABLET (FP) PO SCH (06:07)
[2021-10-06] MEDS: INSULIN SLIDING SCALE (NOVOLOG) 1 VIAL SQ SCH ×2 (06:07→12:47)
[2021-10-06] MEDS: PANTOPRAZOLE 40 MG TABLET PO SCH (06:08)
[2021-10-06] MEDS: FERROUS SO4 325 MG TABLET (FP) PO SCH ×2 (08:18→12:53)
[2021-10-06] MEDS: ASPIRIN 81 MG CHEWABLE TABLETS PO SCH (09:43)
[2021-10-06] MEDS: GABAPENTIN 100 MG CAPSULE PO SCH (09:43)
[2021-10-06] MEDS: ISOSORBIDE MONONITRATE 30 MG TAB.SR.24H (FP) PO SCH (09:43)
[2021-10-06] MEDS: metoPROLOL SUCCINATE 25 MG TAB.SR.24H (FP) PO SCH (09:43)
[2021-10-06 14:42] VITALS: BP 108/61; PULSE 70; TEMP 97.8
== END 2021-10-06 16:01 | disposition home or self-care (01) | DRG 392 ==
LOC: JER 18:07 → JERBED 10-05 01:02 → J8W 10-05 04:59
PROVIDERS: ADMIT Internal Medicine; ATTEND Family Medicine
DX: K52.9 Noninfective gastroenteritis and colitis, unspecified (principal); N83.209 Unspecified ovarian cyst, unspecified side; I10 Essential (primary) hypertension; E78.5 Hyperlipidemia, unspecified; E11.9 Type 2 diabetes mellitus without complications; J44.9 Chronic obstructive pulmonary disease, unspecified
CPT/HCPCS: 36415; 71045-TC-FY; 74177-TC; 76705-TC; 80048; 80053; 81003; 82550; 82962; 83690; 84484; 85025; 85027; 85610; 85730; 87086; 93005; 93010; 99285-25; C9803; Q9967; U0003; U0005